=== PATIENT | female | born 1945 | race Caucasian/White ===

== ENCOUNTER 2023-11-05 16:05 | Inpatient (IN) | payer MEDICARE, OTHER, SELFPAY ==
[2023-11-05 11:17] VITALS: BMI 23.8
[2023-11-05 11:18] VITALS: BP 145/127
[2023-11-05 11:28] LABS: Glucose - Point of Care 99 mg/dl (70-99)
[2023-11-05 12:00] VITALS: BP 134/70
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
[2023-11-05 13:05] LABS: Hematocrit 28.6 % (37.0-47.0); Hemoglobin 9.5 g/dL (12.0-16.0); Mean Corp Hgb Conc. 33.2 g/dL (33.0-37.0); Mean Corpuscular Hgb 31.3 pg (27.0-31.0); Mean Corpuscular Volume 94.1 fL (81.0-99.0); Mean Platelet Volume 11.1 fL (7.4-10.4); Platelet Count 207 10^3/uL (130-400); Red Blood Cell Count 3.04 10^6/uL (4.20-5.40); Red Cell Dist. Width 13.4 % (11.5-14.5); White Blood Cell Count 8.9 10^3/uL (4.8-10.8)
[2023-11-05] MEDS: NSS 500 IV (13:05)
[2023-11-05 13:22] LABS: Lactic Acid 1.1 mmol/L (0.7-2.0)
[2023-11-05 13:27] LABS: ALT (SGPT) 30 U/L (0-35); AST (SGOT) 51 U/L (14-36); Albumin 3.6 g/dl (3.5-5.0); Alkaline Phosphatase 133 U/L (38-126); Blood Urea Nitrogen 25 mg/dl (7-17); Calcium 8.8 mg/dl (8.4-10.2); Carbon Dioxide 17 mmol/L (22-30); Chloride 107 mmol/L (98-107); Creatine Phosphokinase 302 U/L (30-135); Estimated Creatinine Clearance 23 ml/min; Glucose 85 mg/dl (70-99); Potassium 4.6 mmol/L (3.5-5.1); Sodium 134 mmol/L (135-145); Total Bilirubin 0.4 mg/dl (0.2-1.3); Total Protein 6.1 g/dl (6.3-8.2); eGFR 35.23
[2023-11-05 14:26] LABS: Urine Albumin 1+ (Neg - Trace); Urine Bilirubin Negative (Negative); Urine Character Clear (Clear); Urine Color Yellow; Urine Glucose Negative (Negative); Urine Ketone Negative (Negative); Urine Leukocyte Negative (Negative); Urine Nitrite Negative (Negative); Urine Occult Blood 1+ (Negative); Urine Specific Gravity 1.015 (<1.030); Urine Urobilinogen Negative (Neg - 1+)
--- NOTE | 2023-11-05 14:31 | PHANOTE ---
med rec jan(11/05/23)- patient states she stopped taking her prednisolone acetate 1% eye drops because she experienced negative symptoms after taking them. She is prescribed 1 drop both eyes twice a day.
[2023-11-05 14:39] LABS: Urine Squamous Cell 16-20 /LPF (Few)
[2023-11-05 14:41] LABS: Urine Bacteria Moderate (Negative)
[2023-11-05 14:42] LABS: Urine Red Blood Cell 0-2 /HPF (0-2)
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
--- NOTE | 2023-11-05 15:55 | CON.CAR ---
Addendum entered and electronically signed by Bennie Hoffmann MD 11/05/23 17:52:
I saw and examined the patient.
The EVENTS ASSISTANT's note was reviewed and I agree with the note.
Comment: 77 year old with cervical cancer, hypertension, type 2 diabetes, and peripheral neuropathy who presents for fall and weakness. She was cleaning her yard and closets all weekend said she felt fine doing this. But then she reports she was
nauseous all weekend long with the chills. Today she stood up and felt weak. Her legs gave out and she fell. She was on the floor for 5 hours. She denies ever having any chest pain or shortness of breath. She reports she really only is
concerned about her feet pain. On exam she has a regular rate and rhythm with a normal S1-S2 no murmur rubs or gallops were appreciated lungs were clear to auscultation. She is awake alert and oriented x 3. No lower extremity edema. On EKG she
has normal sinus rhythm with a left axis deviation, septal infarct pattern, nonspecific ST-T wave changes. When compared to the prior on 04/15/2023, nonspecific ST changes in V4 to V6 are now seen, these are very mild. Labs significant for
creatinine 1.5 troponin of 2.18 creatinine kinase of 302. We are asked to comment on her abnormal troponin. Source of her abnormal troponin is unclear. She certainly has risk factors for underlying coronary artery disease. It is possible that
the nausea was a coronary anginal equivalent. We discussed the indication for cardiac catheterization, and medications to thin her blood. She is not sure she is interested in either right now. She will contemplate and let me know. If troponin
continues to rise, would certainly try to at least initiate heparin and Plavix. Echocardiogram was completed and will see the source of this. She was on the ground for quite some time so may be rhabdomyolysis is playing a role. She is certainly
comfortable right now without any complaints at all. Would continue her beta-kirk for her history of hypertension. Given her diabetes and possible non-STEMI would initiate statin therapy when CK improves.
Will follow.
Original Note:
Consultation
Consultation Request
Date/Time Consultation Requested: 11/05/2023 15:30
Date/Time Consultation Performed: 11/05/2023 16:00
Requesting Provider: Dr. Burnett
Performing Provider: LI Orozco from Dr. Hoffmann
Reason for Consultation: Abnormal tt
Medical History
-
Chief Complaint: Fall
History of Present Illness:
Anabelle Terrell is a 77 year old with cervical cancer, hypertension, type 2 diabetes, and peripheral neuropathy who presented to the emergency department after a fall. She reports she got out of bed and her legs gave out. She denies a sensation of
the room spinning. She denies loss of consciousness. She was on the floor for approximately 5 hours. She reports her son would not help her up. She used her cane to get the phone to call 911. EMS reports hypoglycemia with a blood glucose of 26
and 32. These were appropriately treated. She endorses fatigue and chills along with intermittent nausea. COVID-19 was negative. Less than 1 week ago she was outside trimming her bushes and doing yard work. She had no symptoms of chest pain or
shortness of breath. Cardiology was consulted as she was found to have a troponin of greater than 2.
Past Medical History
Past Medical History: Cancer (Cervical), HTN, Hypercholesterolemia, NIDDM and Renal Failure (CKD)
Past Surgical History: , Orthopedic and Tonsilectomy
Social History
Tobacco: Non-Smoker
Alcohol: None
Living: With Family (Older son.)
Employment: Retired
Family History
Family History: Reviewed & Not Pertinent
Allergies / Home Medications
Allergy/AdvReac Type Severity Reaction Status Date / Time
grass pollen-sweet vernal, Allergy Unknown Verified 12/17/21 14:54
standardized
[Grass Poll-Sweet Vernal
Grass]
house dust Allergy Unknown Verified 03/10/22 09:17
mold Allergy Unknown Verified 03/10/22 09:17
pollen extracts Allergy Unknown Verified 03/10/22 09:17
�Medication �Instructions �Recorded �Confirmed �Type
gabapentin 300 mg capsule 600 mg PO ONCE PRN feet spasms 11/19/12 11/05/23 History
metformin 1,000 mg tablet 1,000 mg PO DAILY@1400 Diabetes 11/19/12 11/05/23 History
insulin glargine 100 unit/mL (3 40 unit SC HS 04/15/23 11/05/23 History
mL) subcutaneous pen (Basaglar
KwikPen U-100 Insulin)
metoprolol succinate 50 mg 50 mg PO DAILY@1400 04/15/23 11/05/23 History
tablet,extended release 24 hr
Review of Systems
-
History Source: Patient
All other systems: Negative unless noted
Constitutional: Fatigue and Chills
EENT: No Symptoms
Respiratory: No Symptoms
Cardiac: No Symptoms
Abdomen/GI: Nausea
: No Symptoms
Musculoskeletal: No Symptoms
Skin: No Symptoms
Neurological: No Symptoms
Endocrine: No Symptoms
Hematologic/Lymphatic: No Symptoms
Physical Exam
Vital Signs
Temp Pulse Resp BP Pulse Ox
98.1 F 86 29 134/70 97
11/05/23 11:18 11/05/23 15:00 11/05/23 15:00 11/05/23 12:00 11/05/23 13:15
Lab Results
11/05/23 12:50
11/05/23 12:50
Troponin I 2.180 ng/ml H* 11/05/23 12:50
Physical Exam
General: Well Developed, Well Nourished, No Apparent Distress and Comfortable
HEENT: Normocephalic and Moist Mucous Membranes
Respiratory: Clear and Non Labored Respirations
Cardiac: S1/S2 and Regular Rhythm; Negative Peripheral Edema
GI: Soft, Non Tender, Non Distended and Normal Bowel Sounds
Rectal: Deferred by Provider
Genito-urinary: No Costovertebral Tender
Musculoskeletal: No Clubbing, No Cyanosis and No Edema
Skin: Warm and Dry
Neuro: AO x 3
Hematologic/Lymphatic: No Lymphadenopathy
Psych: Calm
Impression / Plan
-
Fall, on floor for 6 hours, CK 302
Weakness with associated chills and nausea
-Covid 19 negative
-No leukocytosis
Abnormal troponin
-Troponin 2.180, trend
-No chest pain
-Trend EKG
-TTE
HTN, chronic, stable
CKD3b
Anemia of chronic disease
Type II diabetes, on insulin & oral agent, hypoglycemia earlier today, last Hgba1c 7.1%
Cervical cancer, follows with Dr. Hoyt
Data Reviewed
-
EKG: Report Reviewed by me (Sinus rhythm, prior septal infarct, anterior T wave changes)
CT Scan: Report Reviewed by me (Head: There are no acute intracranial abnormalities. There is moderate diffuse cortical atrophy with mild nonspecific white matter changes as described above.)
Labs: Labs Reviewed by me
Old Records: Reviewed (PCP notes)
[2023-11-05 16:19] LABS: COVID-19 Antigen Negative (Negative)
[2023-11-05 19:35] VITALS: BP 142/71
[2023-11-05] MEDS: TYLENOL 650 MG PO (19:58)
[2023-11-05 20:36] LABS: Glucose - Point of Care 115 mg/dl (70-99)
[2023-11-05] MEDS: NSS 1000 IV (20:54)
[2023-11-05] MEDS: LOW STRENGTH ASPIRIN 324 MG PO (20:54)
[2023-11-05] MEDS: LOVENOX 30 MG SC (20:59)
[2023-11-05] MEDS: NOVOLOG FLEXPEN-LOW RESISTANCE SC (21:27)
[2023-11-05 21:39] LABS: Glucose - Point of Care 116 mg/dl (70-99)
[2023-11-05 23:30] VITALS: BP 88/49
[2023-11-06] VITALS (7 sets, daily range): BP systolic 98–158; BP diastolic 53–89; PULSE 91; O2SAT 97
[2023-11-06 05:07] LABS: Glucose - Point of Care 48 mg/dl (70-99)
[2023-11-06 05:29] LABS: Glucose - Point of Care 52 mg/dl (70-99)
[2023-11-06 05:48] LABS: Glucose - Point of Care 93 mg/dl (70-99)
[2023-11-06] MEDS: NSS 1000 IV ×2 (06:29→21:49)
[2023-11-06 07:41] LABS: Glucose - Point of Care 103 mg/dl (70-99)
[2023-11-06 07:46] LABS: Hematocrit 26.8 % (37.0-47.0); Hemoglobin 9.3 g/dL (12.0-16.0); Mean Corp Hgb Conc. 34.7 g/dL (33.0-37.0); Mean Corpuscular Hgb 30.9 pg (27.0-31.0); Mean Platelet Volume 10.7 fL (7.4-10.4); Platelet Count 203 10^3/uL (130-400); Red Blood Cell Count 3.01 10^6/uL (4.20-5.40); Red Cell Dist. Width 13.3 % (11.5-14.5); White Blood Cell Count 6.4 10^3/uL (4.8-10.8)
[2023-11-06 08:24] LABS: ALT (SGPT) 30 U/L (0-35); AST (SGOT) 61 U/L (14-36); Alkaline Phosphatase 118 U/L (38-126); Blood Urea Nitrogen 26 mg/dl (7-17); Calcium 8.2 mg/dl (8.4-10.2); Carbon Dioxide 14 mmol/L (22-30); Chloride 108 mmol/L (98-107); Creatine Phosphokinase 452 U/L (30-135); Estimated Creatinine Clearance 26 ml/min; Glucose 94 mg/dl (70-99); Potassium 4.4 mmol/L (3.5-5.1); Sodium 133 mmol/L (135-145); Total Bilirubin 0.3 mg/dl (0.2-1.3); Total Protein 5.3 g/dl (6.3-8.2); eGFR 41.83
[2023-11-06 08:41] LABS: Glucose - Point of Care 71 mg/dl (70-99)
--- NOTE | 2023-11-06 08:42 | PTCARENOTE ---
~20:36 18:34 Troponin level 5.800 lab results. Pt denied chest pain, SOB, difficulty breathing, lightheadedness, and dizziness. Notified Physician Tahira. Per physician, this RN asked pt if they reconsidered blood thinners and cath. Pt refused
blood thinners and cath. 'My friend is a health and safety director and said to only go on blood thinners if it is absolutely necessary.' Notified Physician Tahira. This RN educated pt again. Pt agreed to 'low dose blood thinner.' Notified Physician
Tahira. Per physician, continue on aspirin. Plan of care ongoing.
~01:20 Notified Physician Tahira of 00:12 Troponin level 7.820 lab results. Pt asleep at the time of results. Pt arousable. AAXO3. Pt denied chest pain, SOB, difficulty breathing, lightheadedness, and dizziness. RN that bernard the lab reported 'pt
denied chest pain at time of lab draw.' Notified Physician Tahira. Plan of care ongoing.
[2023-11-06 08:43] LABS: TSH 1.23 uIU/ml (0.47-4.68)
[2023-11-06] MEDS: NOVOLOG FLEXPEN-LOW RESISTANCE SC ×3 (08:56→17:33)
[2023-11-06 09:11] LABS: Glycohemoglobin (HgbA1c) 7.1 % (4.0-5.6)
[2023-11-06 09:29] LABS: Glucose - Point of Care 85 mg/dl (70-99)
--- NOTE | 2023-11-06 09:56 | W.PN.CD ---
Today's Communication / Plan
-
Check f/u EKG
Impression / Plan
-
Systemic illness resulting in a fall and rising CPK, generalized weakness. Low bicarbonate with single blood culture positive
- Defer to medicine for further evaluation and treatment
Abnormal troponin. Peak troponin 7.8
- Echo with no wall motion changes
- Will check a followup EKG
- No CP
- Suspect a non-ischemic myocardial injury precipitated by her medical illness, cannot rule out a type II IN but I do not favor cardiac MRI or nuclear stress at this time
- Electively a stress test can be considered as an outpatinet
Mixed mitral valve disease
- Dense MAC
- Mod calcific MS
- Mod MR
HTN, chronic, stable
CKD3b
Anemia of chronic disease
Type II diabetes, on insulin & oral agent, hypoglycemia earlier today, last Hgba1c 7.1%
Cervical cancer, follows with Dr. Hoyt
Subjective:
No CP or dyspnae
Physical Exam
Vital Signs/Labs
Vital Signs
Temp Pulse Resp BP Pulse Ox
97.9 F 85 21 98/66 99
11/06/23 07:58 11/06/23 07:58 11/06/23 07:58 11/06/23 07:58 11/06/23 07:58
11/05/23 11/06/23 11/07/23
06:59 06:59 06:59
Actual Weight 57 kg
11/06/23 07:35
11/06/23 07:35
TSH 1.23 uIU/ml (0.47-4.68) 11/06/23 07:35
LAB Results
11/05/23 11/05/23 11/06/23
12:50 18:34 00:12
Troponin I 2.180 H* 5.800 H* D 7.820 H* D
11/06/23
07:35
Troponin I 5.700 H* D
Physical Exam
Constitutional: No acute distress
EENT: Anicteric
Cardiovascular: Rhythm & rate is regular and Pedal edema is absent
Respiratory: Respiratory effort normal and Lungs clear to auscul.
GI: Soft and Distention absent
Data Reviewed
-
Date of Service: November 06, 2023
[2023-11-06 12:18] LABS: Glucose - Point of Care 116 mg/dl (70-99)
[2023-11-06] MEDS: TOPROL XL 50 MG PO (13:12)
[2023-11-06] MEDS: FLUSH (NSS) 1 FLUSH IV (13:13)
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
[2023-11-06 15:45] LABS: Glucose - Point of Care 137 mg/dl (70-99)
--- NOTE | 2023-11-06 16:16 | W.PN.HOSP.TC ---
Today's Communication/Plan
-
see plan above
Assessment / Plan
Assessment / Plan
Weakness with fall without loss of consciousness-suspect sec to hypoglycemia. She also has elevated troponins which is asymptomatic. Clinically doubt infection-afebrile and white count normal. No focal infective symptoms.
Severe hypoglycemia-patient known to have diabetes mellitus on insulin. Hemoglobin A1c 7.1 . Cotinue to hold metformin and insulin for now.With issues with recurrent hypoglycemia not a candidate for Insulin treatments. Will exlpore GLP-1 and
SGLT2 medications along with her metformin.
Abnormal troponins -suspect NSTEMI -EKG read as septal Q waves which noted before. No acute ST-T changes. She is asymptomatic without chest pain or shortness of breath. ECHO with normal LV function. Ischemia eval per cards.
Mild rhabodmyolysis- no need for further IV fluids
Metabolic acidosis -sec to CKD .No lactic acidosis. Start on low dose Sodium bicarbonate
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
Neuropathy-continue with gabapentin
Full code
DW Cardiology today
Anticipated Discharge: 24 - 48 hours
Subjective/Interval History
-
Date of Service: November 06, 2023
patient denies any chest pain. Denies any shortness of breath.
No nausea vomiting. Tolerating diet.
Objective Data
-
Labs:
Laboratory Results
11/06/23
07:35
WBC 6.4
Hgb 9.3 L
Hct 26.8 L
Plt Count 203
Sodium 133 L
Potassium 4.4
Chloride 108 H
Carbon Dioxide 14 L*
BUN 26 H
Creatinine 1.3 H
Glucose 94
Calcium 8.2 L
Total Bilirubin 0.3
AST 61 H
ALT 30
Alkaline Phosphatase 118
Vital Signs:
Vital Signs
Temp Pulse Resp BP Pulse Ox
97.3 F 93 18 133/89 98
11/06/23 16:00 11/06/23 16:00 11/06/23 16:00 11/06/23 16:00 11/06/23 16:00
Review of Systems
-
Constitutional: Denies Fever
EENT: Denies Sore Throat
Respiratory: Denies Cough or Trouble Breathing
Cardiac: Denies Chest Pain
Abdomen/GI: Denies Abdominal Pain, Nausea or Vomiting
Neuro: Denies Dizzy
Physical Exam
-
General: No Apparent Distress
HEENT: Moist Mucous Membranes
Respiratory: Clear to Auscultation
Cardiac: Regular Rhythm and S1/S2
GI: Soft
Neuro: AO x 3
Data Reviewed
-
Labs: Labs Reviewed by me
[2023-11-06] MEDS: LOVENOX 30 MG SC (17:33)
[2023-11-06] MEDS: SODIUM BICARBONATE 325 MG PO ×2 (17:36→21:46)
[2023-11-06 21:10] LABS: Glucose - Point of Care 102 mg/dl (70-99)
[2023-11-06] MEDS: TYLENOL 650 MG PO (23:06)
[2023-11-07] VITALS (7 sets, daily range): BP systolic 103–171; BP diastolic 55–93; PULSE 100; O2SAT 94
[2023-11-07 02:39] LABS: Glucose - Point of Care 69 mg/dl (70-99)
[2023-11-07 02:58] LABS: Glucose - Point of Care 81 mg/dl (70-99)
[2023-11-07 05:07] LABS: Glucose - Point of Care 76 mg/dl (70-99)
[2023-11-07 07:18] LABS: Glucose - Point of Care 64 mg/dl (70-99)
[2023-11-07 07:50] LABS: Glucose - Point of Care 71 mg/dl (70-99)
[2023-11-07] MEDS: NOVOLOG FLEXPEN-LOW RESISTANCE SC ×2 (08:01→12:46)
[2023-11-07] MEDS: SODIUM BICARBONATE 325 MG PO ×3 (08:36→21:10)
--- NOTE | 2023-11-07 08:37 | PN.CDI ---
CDI
- -
CDI:
Physician Documentation Request
Admit Date: 11/05/23 16:05
Dear Doctor Lex,
Clinical Indicators:
Patient admitted with weakness and fall.
11/04 Cardiology consult, 'Her legs gave out and she fell. She was on the floor for 5 hours.'
11/05 PN, 'Mild rhabodmyolysis'
CPK trend:
11/05/23 11/06/23
12:50 07:35
Creatine Kinase 302 H 452 H D
Please clarify the type of rhabdomyolysis:
Non traumatic rhabdomyolysis
Traumatic rhabdomyolysis
Other, please specify
Use of terms such as suspected, likely, concern for, or probable (associated with a specific diagnosis that is being evaluated, monitored, or treated as if it exists) are acceptable and can be coded in the inpatient setting, when documented at the
time of discharge.
Thank you,
SAMSON Deng RN
CDI Specialist
available via tiger text
Please use your independent medical judgment in providing your response.
--- NOTE | 2023-11-07 09:14 | PN.DE.MGMTRT ---
Insulin Management
- -
11/07/2023 Diabetes Management Consult
Patient admitted 11/04 s/p fall, possibly related to hypoglycemia. PMH hyperparathyroid, nephropathy, CKD 3b, HTN, type 2 diabetes, HCL, cervical CA. A1C on admission 7.1, cr 1.3, eGFR 41.83. Prior to admission was taking Basaglar 40 units @ HS
with metformin 1000 BID.
Glucose on admission 99, 11/05 at 5AM 48, treated 52 treated 93. Glucose pre meal 116, 137 and 102 @ HS.
11/06 @ 2:38AM 69, treated 81, @ 7:17 64.
Patient has received no hypoglycemic medications. Will continue to HOLD both metformin and basaglar.
Patient is awake alert and oriented able to discuss diabetes management. States at home she only eats soup for breakfast and soup for lunch and dinner. She changes the dose of Basaglar anywhere from 20 units to 40 units.
At discharge would recommend metformin 1000 mg BID no Basaglar.
Diabetes History
- -
Type of Diabetes: 2
Pre-Admission Diabetes Regimen
Lab Results
Hemoglobin A1c 7.1 % (4.0-5.6) H 11/06/23 07:35
Insulin Pump Settings
IP Diabetes Regimen
11/06/23 11/06/23 11/06/23
09:27 12:17 15:34
POC Glucose 85 116 H 137 H
11/06/23 11/07/23 11/07/23
21:09 02:38 02:56
POC Glucose 102 H 69 L 81
11/07/23 11/07/23 11/07/23
05:05 07:17 07:46
POC Glucose 76 64 L 71
Meal type: Lunch
Meal type: Breakfast
Amount consumed: 95%
Amount consumed: 85%
Patient Education
--- NOTE | 2023-11-07 10:13 | W.PN.CD ---
Today's Communication / Plan
-
Cardiology will sign off.
We will arrange a f/u in 1-2 months to follow MV disease and to consider stress testing
Impression / Plan
-
Systemic illness resulting in a fall and rising CPK, generalized weakness. Low bicarbonate with single blood culture positive
- Defer to medicine for further evaluation and treatment
- Medicine leaning towards hypoglycemia as culprit
Abnormal troponin. Peak troponin 7.8
- Echo with no wall motion changes
- Will check a followup EKG => no changes. Septal infarct pattern IS VERY OLD.
- No CP
- Suspect a non-ischemic myocardial injury precipitated by her medical illness, cannot rule out a type II GA but I do not favor cardiac MRI or nuclear stress at this time
- Electively a stress test can be considered as an outpatient
Mixed mitral valve disease
- Dense MAC
- Mod calcific MS
- Mod MR
HTN, chronic, stable
CKD3b
Anemia of chronic disease
Type II diabetes, on insulin & oral agent, hypoglycemia earlier today, last Hgba1c 7.1%
Cervical cancer, follows with Dr. Hoyt
Subjective:
No CP or dyspnea
Physical Exam
Vital Signs/Labs
Vital Signs
Temp Pulse Resp BP Pulse Ox
98.2 F 81 18 148/76 96
11/07/23 08:00 11/07/23 08:00 11/07/23 08:00 11/07/23 08:00 11/07/23 08:00
11/06/23 11/07/23 11/08/23
06:59 06:59 06:59
Actual Weight 57 kg
11/06/23 07:35
11/06/23 07:35
TSH 1.23 uIU/ml (0.47-4.68) 11/06/23 07:35
LAB Results
11/05/23 11/05/23 11/06/23
12:50 18:34 00:12
Troponin I 2.180 H* 5.800 H* D 7.820 H* D
11/06/23
07:35
Troponin I 5.700 H* D
Physical Exam
Constitutional: No acute distress
EENT: Anicteric
Cardiovascular: Rhythm & rate is regular and Pedal edema is absent
Respiratory: Respiratory effort normal and Lungs clear to auscul.
GI: Soft and Distention absent
Neuro/Psych: AO x 3
Data Reviewed
-
Date of Service: November 07, 2023
--- NOTE | 2023-11-07 11:09 | W.PN.HOSP.TC ---
Today's Communication/Plan
-
DC
Assessment / Plan
Assessment / Plan
Weakness with fall without loss of consciousness-suspect sec to hypoglycemia. She also has elevated troponins which is asymptomatic. Clinically doubt infection-afebrile and white count normal. No focal infective symptoms.
Severe hypoglycemia-patient known to have diabetes mellitus on insulin. Hemoglobin A1c 7.1 . Cotinue to hold insulin for now.With issues with recurrent hypoglycemia not a candidate for Insulin treatments. Will exlpore GLP-1 and SGLT2 medications
along with her metformin . With her current blood sugar levels ,Metformin alone should be suffice.
Abnormal troponins -suspect NSTEMI -EKG read as septal Q waves which noted before. No acute ST-T changes. She is asymptomatic without chest pain or shortness of breath. ECHO with normal LV function. Ischemia eval per cards -planned for OP.
Mild rhabodmyolysis- no need for further IV fluids
Metabolic acidosis -Normal AG -sec to CKD .No lactic acidosis. Started on low dose Sodium bicarbonate
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
Neuropathy-continue with gabapentin
Full code
Medically stable for DC today
DC home after seen by PT and cleared for HH.
Discussed with cards about their OP plan
Total time of dc 32 min
Anticipated Discharge: Today
Subjective/Interval History
-
Date of Service: November 07, 2023
Voicing no specific complaints today. Keen to go home today.
Denies any chest pain, shortness of breath or palpitations.
No nausea or vomiting.
Objective Data
-
Vital Signs:
Vital Signs
Temp Pulse Resp BP Pulse Ox
98.2 F 81 18 148/76 96
11/07/23 08:00 11/07/23 08:00 11/07/23 08:00 11/07/23 08:00 11/07/23 08:00
I&O
06/11/07/23 11/08/23
06:59 06:59 06:59
Intake Total 2159
Balance 2159
Review of Systems
-
Constitutional: Denies Fever
EENT: Denies Sore Throat
Respiratory: Denies Cough
Abdomen/GI: Denies Abdominal Pain
Neuro: Denies Dizzy
Physical Exam
-
General: No Apparent Distress
HEENT: Moist Mucous Membranes
Respiratory: Non Labored Respirations and Accessory Resp Muscle Use
Cardiac: Regular Rhythm and S1/S2
GI: Soft and Nontender
Neuro: AO x 3
Psych: Calm; Negative Confused
Data Reviewed
-
Labs: Labs Reviewed by me
--- NOTE | 2023-11-07 11:16 | W.DS.TRANS ---
DC Summary - Lav Crewman
-
Discharge Instructions:
Discharge Diagnosis/Procedures Severe hyperglycemia. Abnormal troponins
Diet Low Cholesterol,2 Gram Sodium
Activity As tolerated
Driving Restrictions Not until seen by your Dr
Other Services PT
Instructions:
Stand-Alone Forms:
Changes to Home Medications: Yes
Discharge Medications:
DC Medications w/original date entered in [employer]
gabapentin 300 mg capsule 600 mg PO ONCE PRN feet spasms 11/19/12
metformin 1,000 mg tablet 1,000 mg PO DAILY@1400 Diabetes 11/19/12
metoprolol succinate 50 mg tablet,extended release 24 hr 50 mg PO DAILY@1400 04/15/23
aspirin 81 mg tablet,delayed release (Enteric Coated Aspirin) 81 mg PO DAILY #30 tabs 11/07/23
sodium bicarbonate 650 mg tablet 325 mg (1/2 x 650 mg) PO TID #90 tabs 11/07/23
Home Medication Changes
medication-aspirin and sodium bicarbonate
Discontinue medication-glargine insulin
Pending Results: No
[2023-11-07] MEDS: NSS IV (11:51)
[2023-11-07 11:57] LABS: Glucose - Point of Care 144 mg/dl (70-99)
--- NOTE | 2023-11-07 12:09 | CM ---
Addendum entered by Genoveva Velazquez 11/07/23 14:43:
Patient now requesting to go to [facility], referral sent in [facility] for short term rehab.
Original Note:
CM placed call to [facility], provided update that patient is for discharge today. [facility] worker, Derrick, will meet with patient at Hospital around 12:30 p.m., patient updated. CM updated [facility] on patient discharge today. Patient reports she is eager to go
home, reports she does not feel safe but does not feel unsafe at home. Patient reports she is concerned about her cat at home and the home being a mess. Patient reports she cannot evict her son from her home as he would have nowhere to go. CM
offered support to patient, discussed [facility] will be here shortly to meet with patient. Patient reports her son Laith will provide transportation home after work, around 3:00 p.m. IMM reviewed, patient reports she verbally understands, cannot sign as
she does not have her glasses with her. CM will continue to follow for all discharge planning needs.
Plan; home with [facility], [facility] to come to Hospital to see patient.
--- NOTE | 2023-11-07 12:58 | VNURNOTE ---
Home Health Liaison met with patient at 1130 to discuss [facility] nurse/therapy, visits, schedule and homebound status. Patient is agreeable and understands that visits at home will be 2-3 x per week to assess and teach medical management.
[facility] brochure provided with contact information. Patient is aware that [facility] will contact her for start of care in 1-2 days after discharge from .
[facility] referral completed in [facility].
[2023-11-07] MEDS: TOPROL XL 50 MG PO (14:43)
[2023-11-07 15:43] LABS: Glucose - Point of Care 309 mg/dl (70-99)
--- NOTE | 2023-11-07 16:06 | PTOTSP ---
Dysphagia Evaluation
Oral and pharyngeal stages of swallowing suspected to be WFL. No signs of aspiration observed. Low suspicion for silent aspiration at this time given lack of known etiology in PMH to explain this. Patient denied history of dysphagia/aspiration or
repeated pneumonias.
Recommend:
1. Regular, Thin Liquids
2. Medications as best tolerated
3. Oral care 3x daily
4. No further dysphagia therapy warranted. Please reconsult as appropriate.
[2023-11-07] MEDS: UNASYN IV (16:32)
[2023-11-07] MEDS: LOVENOX 30 MG SC (16:34)
[2023-11-07] MEDS: NOVOLOG FLEXPEN-LOW RESISTANCE 4 UNITS SC (18:24)
[2023-11-07] MEDS: GLUCOPHAGE 500 MG PO (18:28)
[2023-11-07] MEDS: TYLENOL 650 MG PO (19:42)
[2023-11-07 21:08] LABS: Glucose - Point of Care 141 mg/dl (70-99)
[2023-11-07] MEDS: LANTUS 0.100000000000000006 UNITS SC (21:10)
[2023-11-08 02:59] LABS: Glucose - Point of Care 92 mg/dl (70-99)
[2023-11-08 03:20] VITALS: BP 131/65
[2023-11-08] MEDS: UNASYN IV ×2 (03:58→16:13)
[2023-11-08 05:52] VITALS: BMI 24.2
[2023-11-08 07:00] VITALS: BP 116/61
[2023-11-08 07:22] LABS: Glucose - Point of Care 107 mg/dl (70-99)
--- NOTE | 2023-11-08 07:41 | PN.DE.MGMTRT ---
Insulin Management
- -
11/08/2023 Diabetes Management Consult Follow up
Patient admitted 11/04 s/p fall, possibly related to hypoglycemia. PMH hyperparathyroid, nephropathy, CKD 3b, HTN, type 2 diabetes, HCL, cervical CA. A1C on admission 7.1, cr 1.3, eGFR 41.83. Prior to admission was taking Basaglar 40 units @ HS
with metformin 1000 BID.
Patient is awake alert and oriented able to discuss diabetes management. States at home she only eats soup for breakfast and soup for lunch and dinner. She changes the dose of Basaglar anywhere from 20 units to 40 units.
Glucose on admission 99, 11/05 at 5AM 48, treated 52 treated 93. Glucose pre meal 116, 137 and 102 @ HS.
11/06 @ 2:38AM 69, treated 81, @ 7:17 64. Pre dinner glucose 309. Nurse notified me, 4 units novolog administered as well as metformin 500 mg and 10 units lantus administered @ HS.
3AM glucose 92 fasting this AM 107. Will stop 10 units lantus and continue metformin 500 mg BID add Januvia 100 mg daily first dose this AM.
At discharge would recommend metformin 500 mg BID no Basaglar with Januvia 100 mg daily.
Diabetes History
- -
Type of Diabetes: 2
Pre-Admission Diabetes Regimen
Lab Results
Hemoglobin A1c 7.1 % (4.0-5.6) H 11/06/23 07:35
Insulin Pump Settings
IP Diabetes Regimen
11/07/23 11/07/23 11/07/23
07:46 11:45 15:41
POC Glucose 71 144 H 309 H
11/07/23 11/08/23 11/08/23
21:06 02:58 07:20
POC Glucose 141 H 92 107 H
Meal type: Breakfast
Meal type: Lunch
Amount consumed: 0
Amount consumed: 30%
Patient Education
[2023-11-08] MEDS: NOVOLOG FLEXPEN-LOW RESISTANCE SC ×3 (09:07→16:14)
[2023-11-08] MEDS: SODIUM BICARBONATE 325 MG PO ×2 (09:07→16:12)
[2023-11-08] MEDS: GLUCOPHAGE 500 MG PO ×2 (09:10→16:12)
[2023-11-08] MEDS: JANUVIA 100 MG PO (09:11)
[2023-11-08 11:00] VITALS: BP 97/67
--- NOTE | 2023-11-08 11:18 | W.PN.HOSP.TC ---
Addendum entered and electronically signed by Jermaine Burnett MD 11/09/23 15:45:
non traumatic rhabdomyolysis
Addendum entered and electronically signed by Jermaine Burnett MD 11/09/23 15:41:
Sepsis sec to aspiration pneumonia/pneumonitis present on adx
Original Note:
Today's Communication/Plan
-
DC
Assessment / Plan
Assessment / Plan
Weakness with fall without loss of consciousness-suspect sec to hypoglycemia. She also has elevated troponins which is asymptomatic.
Severe hypoglycemia-patient known to have diabetes mellitus on insulin. Hemoglobin A1c 7.1 . Cotinue to hold insulin for now.With issues with recurrent hypoglycemia not a candidate for Insulin treatments. Will exlpore GLP-1 and SGLT2 medications
along with her metformin- they are pricey at 420$/m . cw Metformin . Added Karl .
Abnormal troponins -suspect NSTEMI -EKG read as septal Q waves which noted before. No acute ST-T changes. She is asymptomatic without chest pain or shortness of breath. ECHO with normal LV function. Ischemia eval per cards -planned for OP.
Febrile illness with a left perihilar opacity concerning for aspiration pneumonitis pneumonia. She was on the floor for a while. Speech eval on admission shows no evidence of aspiration. Finish 5 days course of antibiotic for possible
aspiration pneumonia/pneumonitis. Afebrile today and no active respiratory symptoms.
Mild rhabodmyolysis- no need for further IV fluids
Metabolic acidosis -Normal AG -sec to CKD .No lactic acidosis. Started on low dose Sodium bicarbonate
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
Neuropathy-continue with gabapentin
Full code
Medically stable for DC .
Pt wishes to go to rehab.
CM working on it.
Total time of DC 32 min
Anticipated Discharge: Today
Subjective/Interval History
-
Date of Service: November 08, 2023
feels okay. She was surprised she had a fever and pneumoina on CXR. She denies much of cough or shortness of breath. No prior lung issues. She was on the floor for a while before EMS came to pick her up.
No nausea or vomiting. Tolerating diet.
Objective Data
-
Vital Signs:
Vital Signs
Temp Pulse Resp BP Pulse Ox
99.8 F 88 20 116/61 92
11/08/23 07:00 11/08/23 07:00 11/08/23 07:00 11/08/23 07:00 11/08/23 07:00
I&O
11/07/23 11/08/23 11/09/23
06:59 06:59 06:59
Intake Total 2160 / 2160 940 / 940
Balance 2160 / 2160 940 / 940
Review of Systems
-
Respiratory: Denies Trouble Breathing
Cardiac: Denies Chest Pain
Neuro: Denies Dizzy
Physical Exam
-
General: No Apparent Distress
HEENT: Moist Mucous Membranes
Respiratory: Clear to Auscultation
Cardiac: Regular Rhythm and S1/S2
GI: Soft
Neuro: AO x 3
Psych: Calm
Data Reviewed
-
Diagnostic Radiology: Report Reviewed by me (cxr)
--- NOTE | 2023-11-08 11:25 | W.DS.TRANS ---
DC Summary - [employer]
-
Discharge Instructions:
Discharge Diagnosis/Procedures Severe hyperglycemia. Abnormal troponins. Left
perihilar aspiration pneumonia/pneumonitis
Diet Low Cholesterol,2 Gram Sodium
Activity As tolerated
Driving Restrictions Not until seen by your Dr
Other Services PT,OT
Instructions:
Stand-Alone Forms:
Changes to Home Medications: Yes
Discharge Medications:
DC Medications w/original date entered in [email or web address]
gabapentin 300 mg capsule 600 mg PO ONCE PRN feet spasms 11/19/12
metoprolol succinate 50 mg tablet,extended release 24 hr 50 mg PO DAILY@1400 04/15/23
aspirin 81 mg tablet,delayed release (Enteric Coated Aspirin) 81 mg PO DAILY #30 tabs 11/07/23
sodium bicarbonate 650 mg tablet 325 mg (1/2 x 650 mg) PO TID #90 tabs 11/07/23
amoxicillin 875 mg-potassium clavulanate 125 mg tablet 1 tab PO BID #8 tabs 11/08/23
metformin 500 mg tablet 500 mg PO BID AT 0800,1700 #1 tab 11/08/23
sitagliptin phosphate 100 mg tablet (Januvia) 100 mg PO DAILY #1 tab 11/08/23
Home Medication Changes
medication-Januvia, sodium bicarbonate
Schedule medication-Lantus
Pending Results: No
[2023-11-08 11:46] LABS: Glucose - Point of Care 112 mg/dl (70-99)
[2023-11-08 15:00] VITALS: BP 127/76
--- NOTE | 2023-11-08 15:14 | CM ---
Addendum entered by Genoveva Velazquez 11/08/23 16:19:
CM sent message with number to call for payment to both patients son and daughter in law.
Addendum entered by Genoveva Velazquez 11/08/23 16:09:
Patient agreeable to go to [facility], can accept for rehab today. Patients family aware CM will call them to provide number fo [facility] payment once time is scheduled.
CM placed call to patients son Laith and daughter in law Mini, to provide number to call for [facility] cost ([phone]), left message to Xi with number to call for [facility]. 5:00 p.m. [facility] transport scheduled. IMM reviewed with
patient, signed, placed in chart.
[facility]
Report: [phone]

Transport: 5pm [facility]
Original Note:
CM met with patient, son, and daughter in law bedside, discussed [facility] unable to accept patient. Patient undecided on where she would like to go, unsure if she wants to go to SNF or go home. Family requesting referrals to [facility] for
[facility], referrals sent in [facility]. CM will continue to follow for all discharge planning needs.
Plan; awaiting response from SNF if they can offer patient bed.
[2023-11-08] MEDS: TOPROL XL 50 MG PO (15:23)
--- NOTE | 2023-11-08 15:38 | PN.CDI ---
CDI
- -
CDI:
Physician Documentation Request
Admit Date: 11/05/23 16:05
Dear Doctor Lex,
Clinical Indicators:
Patient admitted with weakness and fall.
11/07 PN, ' Febrile illness with a left perihilar opacity concerning for aspiration pneumonitis pneumonia. She was on the floor for a while...Finish 5 days course of antibiotic for possible aspiration pneumonia/pneumonitis'
Temp on admission:
11/05/23
19:35
Temp 102.5 F H
HR/RR trend on admission:
11/05/23
11:18 11/05/23
11:30 11/05/23
12:30
Pulse 96 92 92
Resp Rate 25 29 18
11/05/23
13:30
Pulse 94
Resp Rate 22
Please clarify which of the following most accurately describes the status of the patient's infection:
Sepsis, POA
- Systemic manifestations of infection, with 2 or more SIRS criteria which include:
- Fever >100.4 degrees F or hypothermia < 96.8 degrees F
- Leukocytosis - WBC > 12,000 or leukopenia - WBC < 4,000 or > 10% bands
- Tachycardia > 90 beats per minute
- Tachypnea - RR > 20 breaths per minute or PaCO2 , 32mmHg
Aspiration pneumonitis pneumonia Only, Without Systemic Illness
- indicate the site/source, such as UTI, pneumonia etc.
Other, please specify
Use of terms such as suspected, likely, concern for, or probable (associated with a specific diagnosis that is being evaluated, monitored, or treated as if it exists) are acceptable and can be coded in the inpatient setting, when documented at the
time of discharge.
Thank you,
Nicole Higuera RN
CDI Specialist
available via tiger text
Please use your independent medical judgment in providing your response.
--- NOTE | 2023-11-08 15:43 | PN.CDI ---
CDI
- -
CDI:
Physician Documentation Request
Admit Date: 11/05/23 16:05
Dear Doctor Lex,
Clinical Indicators:
Patient admitted with weakness and fall.
11/04 Echo Report: Normal biventricular size and systolic function without regional wall motion abnormality.
11/06 Cardiology PN, ' Will check a followup EKG => no changes. Septal infarct pattern IS VERY OLD....Suspect a non-ischemic myocardial injury precipitated by her medical illness, cannot rule out a type II RI'
11/07 PN, 'Abnormal troponins -suspect NSTEMI -EKG read as septal Q waves which noted before. No acute ST-T change'
Troponin trend:
Laboratory Tests
11/05/23 11/05/23 11/06/23
12:50 18:34 00:12
Troponin I 2.180 H* 5.800 H* D 7.820 H* D
11/06/23
07:35
Troponin I 5.700 H* D
Due to potentially conflicting documentation, please clarify the likely etiology of the troponin elevation:
Non ischemic myocardial injury
N STEMI (documentation complete)
Type II RI
Other
Unable to determine
Use of terms such as suspected, likely, concern for, or probable (associated with a specific diagnosis that is being evaluated, monitored, or treated as if it exists) are acceptable and can be coded in the inpatient setting, when documented at the
time of discharge.
Thank you,
SAMSON Deng RN
CDI Specialist
available via tiger text
Please use your independent medical judgment in providing your response.
[2023-11-08 16:13] LABS: Glucose - Point of Care 119 mg/dl (70-99)
== END 2023-11-08 17:14 | DRG 871 ==
LOC: 4 WEST ACU 16:05
PROVIDERS: Nurse Practitioner Gerontology; ADMITTING PHYSICIAN Internal Medicine; CONSULT PHYSICIAN Internal Medicine Cardiovascular Disease; EMERGENCY PHYSICIAN Emergency Medicine; FAMILY PHYSICIAN Family Medicine
DX: A41.9 Sepsis, unspecified organism (principal); I21.4 Non-ST elevation (NSTEMI) myocardial infarction; J69.0 Pneumonitis due to inhalation of food and vomit; E87.20 Acidosis, unspecified; M62.82 Rhabdomyolysis; E11.649 Type 2 diabetes mellitus with hypoglycemia without coma; I12.9 Hypertensive chronic kidney disease with stage 1 through stage 4 chronic kidney disease, or unspecified chronic kidney disease; N18.32 Chronic kidney disease, stage 3b; Z11.52 Encounter for screening for COVID-19; D63.8 Anemia in other chronic diseases classified elsewhere
CPT/HCPCS: 70450; 71046; 80053; 81003; 81015; 82550; 82962; 83036; 83605; 84443; 84484; 85027; 87040; 87086; 87150; 87205; 87811; 92610; 93005; 93306; 97116; 97162; 99285

== ENCOUNTER 2024-01-28 09:46 | Outpatient (RCR) | payer MEDICARE, OTHER, SELFPAY ==
[2024-01-28 10:04] VITALS: BP 144/72
[2024-01-28] MEDS: INJECTAFER 265 MG IV (10:39)
== END 2024-02-11 23:59 | disposition home or self-care (01) ==
LOC: OID 09:46
PROVIDERS: ATTENDING PHYSICIAN Physician Assistant; FAMILY PHYSICIAN Family Medicine
DX: D50.0 Iron deficiency anemia secondary to blood loss (chronic) (principal); N18.32 Chronic kidney disease, stage 3b
CPT/HCPCS: 96365; J1439

== ENCOUNTER 2024-02-01 18:00 | Inpatient (IN) | payer MEDICARE, OTHER, SELFPAY ==
[2024-02-01] VITALS (9 sets, daily range): BP systolic 128–163; BP diastolic 65–123; BMI 21.9; BMI 24.1
--- NOTE | 2024-02-01 13:03 | EDRN ---
the pt was agreeable to laying in stretcher, the pt is resting in stretcher in the lowest position, side rails up x2, call bess within reach, HOB elevated, no s/s of distress, no c/o chest pain, no c/o SOB, PIV placed and labs drawn and sent, will
continue to monitor the pt closely
[2024-02-01 13:06] LABS: % Eosinophils 3.1 % (0-6); % Immature Granulocytes 0.5 % (0-0.5); % Lymphocytes 9.7 % (20.5-51.1); % Monocytes 7.2 % (1.7-9.3); % Neutrophils 78.5 % (42.2-75.2); Absolute Basophils 0.1 10^3/uL (0-0.2); Absolute Eosinophils 0.2 10^3/uL (0-0.7); Absolute Lymphocytes 0.6 10^3/uL (1.2-3.4); Absolute Monocytes 0.4 10^3/uL (0.1-0.6); Absolute Neutrophils 4.6 10^3/uL (1.4-6.5); Hemoglobin 8.2 g/dL (12.0-16.0); Mean Corp Hgb Conc. 32.8 g/dL (33.0-37.0); Mean Corpuscular Hgb 30.5 pg (27.0-31.0); Mean Corpuscular Volume 92.9 fL (81.0-99.0); Mean Platelet Volume 10.9 fL (7.4-10.4); Nucleated Red Blood Cells % 0 %; Platelet Count 364 10^3/uL (130-400); Red Blood Cell Count 2.69 10^6/uL (4.20-5.40); Red Cell Dist. Width 13.7 % (11.5-14.5); White Blood Cell Count 5.9 10^3/uL (4.8-10.8)
[2024-02-01 13:21] LABS: ALT (SGPT) 21 U/L (0-35); AST (SGOT) 28 U/L (14-36); Albumin 3.8 g/dl (3.5-5.0); Alkaline Phosphatase 172 U/L (38-126); Blood Urea Nitrogen 22 mg/dl (7-17); Calcium 9.4 mg/dl (8.4-10.2); Carbon Dioxide 15 mmol/L (22-30); Chloride 110 mmol/L (98-107); Estimated Creatinine Clearance 34 ml/min; Glucose 70 mg/dl (70-99); Sodium 141 mmol/L (135-145); Total Bilirubin 0.3 mg/dl (0.2-1.3); Total Protein 6.5 g/dl (6.3-8.2)
[2024-02-01 13:29] LABS: NT-proBNP 12000 pg/ml
--- NOTE | 2024-02-01 14:41 | EDRN ---
the pts son approached this RN at the nurses station and stated, 'My mother is hungry and we have been here for hours and we still don't know what's going on, is the doctor going to update us? and i want her to have food', this RN notified the
provider Dr. Phillips who will come to the pts bedside, this RN confirmed with the provider that the pt could have something to eat, this RN provided the pt with an ER lunch box, the pt is sitting on the side of the bed eating with no issues, will
continue to monitor the pt closely
[2024-02-01 15:37] LABS: Troponin I < 0.012 ng/ml
--- NOTE | 2024-02-01 15:39 | ED.GENMED ---
History of Present Illness
General
Chief Complaint: Breathing Problem
Source: patient and family
Exam Limitations: none
Time Seen by Provider: 02/01/24 12:37
History of Present Illness
History of Present Illness:
This an 78-year-old female presents with persistent and worsening shortness of breath. She states this started after her iron infusion on Sunday. She has never had an iron infusion. She has a history of chronic anemia. Patient states she also
has had some leg swelling that has been progressive. Patient reports shortness of breath at night and with exertion. She also reports a little shortness of breath at rest. Patient does states she would like to sit outside the bed because she
feels more short of breath laying back. No fevers. No chest pain.
Past History
Past History
ED Past Medical History: HTN, IDDM and Other (Hypoglycemia events)
ED Past Surgical History: Other
Social History
Tobacco: Non-smoker
Alcohol: None
Drug: None
Personal: Other
Living: alone
Employment: Not employed
Family History
Family History: Diabetes
Phy Exam
Physical Exam
Physical Exam:
CONSTITUTIONAL Patient alert and oriented to person, place and time. Well-appearing. Vital signs reviewed.
HEAD atraumatic, normocephalic.
EYES eyelids normal to inspection, Pupils equally round and reactive to light, Extraocular muscles intact, Conjunctiva normal, Sclera normal.
NECK normal range of motion, Trachea midline, JVD noted.
RESPIRATORY CHEST No respiratory distress noted, Chest expansion equal, diminished at bilateral bases
CARDIOVASCULAR regular rate and rhythm, Heart sounds normal.
BACK normal inspection, no obvious deformities
UPPER EXTREMITY range of motion normal, Motor strength normal, no cyanosis, no edema.
LOWER EXTREMITY range of motion normal, Motor strength normal, no cyanosis, bilateral lower extremity edema.
NEURO Speech normal, No focal motor deficits, [place] coma scale 15, Memory normal, Cranial Nerves intact to screening exam.
SKIN skin warm, dry, and normal in color.
PSYCHIATRIC patient oriented to person place and time, Normal affect.
Scores
Heart Failure Risk
Heart Failure Risk Score: Yes
History of Stroke or TIA: No
History of intubation for respiratory distress: No
Heart rate on ED arrival >/= 110: No
SaO2 <90% on arrival on room air: No
HR >/=110 during 3min walk test (or too ill to perform test): Yes
ECG has acute ischemic changes: No
Urea >/=12mmol/L (BUN 33.6mg/dL): No
Serum CO2>/=35mmol/L: No
Troponin I or T elevated to [place] Level (0.4mg/dL): No
NT-proBNP >/=5,000ng/L (5,000pg/ml): Yes
HF Risk Score: 3
Admission Status: HIGH RISK 15.9% Consider SNF treatment or admission to hospital
Course
Orders/Labs/Results
Orders:
Orders
02/01/24 11:50
EKG [Electrocardiogram (*1)] Urgent
Reason for Study: Palpitations
EKG- Treatment ONCE
02/01/24 12:55
Complete Blood Count/With Diff Urgent
Comprehensive Metabolic Panel Urgent
NT-proBNP Urgent
Troponin I Urgent
Comment: ADD ON
02/01/24 14:08
CR Chest - 2 Views Urgent
Comment:
Reason For Exam: sob
02/01/24 14:20
Add On- LAB Urgent
Tests Added?: troponin
02/01/24 Dinner
Sodium, 4 Gram (LA)
At Your Request: Full Participation
02/01/24 15:39
Furosemide [Lasix] 40 mg IV NOW STA
02/01/24 17:29
Admit/Transfer Patient As Directed
Co-Sign Provider:
Level of Care: Inpatient admission
Assign to:: Telemetry
Physician / Group: Mirsky/Hospitalist
Diagnosis: CHF
Reason for Telemetry: Arrhythmia
Date to Stop Telemetry: 02/04/24
Time to Stop Telemetry: 11:00
Reason for Hospitalization: Acute Respiratory Distress
CHF
Chronic Anemia
Expected length of stay greater than two midnights?: Yes
ELOS- Estimated Length of Stay in days: 4
I certify the patient meets the requirements for IP care: Yes
PRN Pain Medication Management As Directed
May give lesser potent ordered pain med per pt: Yes
preference::
Protocol:: Medication orders for pain may be administered in a
manner that supports deferring to patient preference
when the pt is:
- Requesting an ordered lesser potent pain medication.
Least to most potent pain medications are defined
as: acetaminophen < NSAID < tramadol < opioids
(morphine, oxycodone, hydromorphone).
- Requesting a lesser dose of the same medication IF
ORDERED.
- Requesting a less intrusive route of administration
if both routes are prescribed by the provider (PO <
IV).
02/01/24 17:31
Code Status As Directed
Resuscitation Status: Full Code
02/01/24 19:45
Bisacodyl [Dulcolax] 10 mg RECTAL [id number] PRN
Docusate W/Senna [Senokot-S] 1 tablet PO BIDPRN PRN
Furosemide [Lasix] 40 mg IV BID AT 0800,1600
Polyethylene Glycol Powder [Miralax] 17 grams PO DAILYPRN PRN
insulin glargine [Basaglar Tempo Pen(U-100)Insln] 10 unit SC QPM
02/01/24 19:45
Consult Cardiology [CARDIOLOGY CONSULT] Routine
Consulting Provider: Ion Carpenter
Was physician already notified: Yes
Activity As Directed
Activity Level: Out of Bed-Early Mobility
Vital Signs As Directed
Frequency: Per unit guidelines
O2 Therapy [RESP] Routine
Nasal Cannula Liter Flow: 2 LPM
Titrate/Wean O2 to maintain O2 sat greater than (%): 88
DX Deep Vein Thrombosis Video Routine
02/01/24 20:00
Heparin 5,000 units SC Q12
02/02/24 05:30
Basic Metabolic Panel IN AM
Complete Blood Count/No Diff IN AM
Ferritin IN AM
Iron IN AM
Magnesium IN AM
Total Iron Binding IN AM
02/02/24 08:00
Aspirin Low Dose EC [Aspir Low (Enteric Coated)] 81 mg PO DAILY
METFORMIN HCl [Glucophage] 500 mg PO BID AT 0800,1700
02/02/24 14:00
Metoprolol Xl [Toprol Xl] 50 mg PO DAILY@1400
02/04/24 11:00
DC Protocol for Telemetry ONCE
Abnormal Lab Results
02/01/24
12:55
RBC 2.69 L 10^6/uL
(4.20-5.40)
Hgb 8.2 L g/dL
(12.0-16.0)
Hct 25.0 L %
(37.0-47.0)
MCHC 32.8 L g/dL
(33.0-37.0)
MPV 10.9 H fL
(7.4-10.4)
Absolute Lymphs (auto) 0.6 L 10^3/uL
(1.2-3.4)
Neutrophils % 78.5 H %
(42.2-75.2)
Lymphocytes % 9.7 L %
(20.5-51.1)
Chloride 110 H mmol/L
(98-107)
Carbon Dioxide 15 L mmol/L
(22-30)
BUN 22 H mg/dl
(7-17)
Creatinine 1.1 H mg/dL
(0.6-1.0)
Alkaline Phosphatase 172 H U/L
(38-126)
02/01/24 12:55
02/01/24 12:55
Vital Signs
Initial and Last Documented VS:
Initial Vital Signs
Temp Pulse Resp BP Pulse Ox
98.1 F 73 18 148/65 99
02/01/24 11:55 02/01/24 11:55 02/01/24 11:55 02/01/24 11:55 02/01/24 11:55
Last Documented Vital Signs
Temp Pulse Resp BP Pulse Ox
98.3 F 74 18 130/60 98
02/02/24 07:10 02/02/24 07:10 02/02/24 07:10 02/02/24 08:07 02/02/24 07:10
MDM/Problems Addressed
MDM/Problems Addressed:
Lower extremity edema, congestive heart failure, chronic anemia
*Pulse Oximetry
Patient hypoxic: no
*EKG
Interpreted by ED Provider?: Yes
Interpretation: abnormal
Rate: normal
Rhythm: sinus
[place]: normal axis
Ischemia: non-specific ST changes
*Patient Placement Coordinator Interpretation
Rate: normal
Interpretation: normal
Rhythm: sinus
*Critical Care Note
Total Time (30-74mins, 75-104mins- exclusive of procedures): Not Applicable
Data Reviewed
Review of Other/Old Records Reveals: Discharge Summary (Discharge summary from December)
Patient Management
Discussion with other providers: Hospitalist
Escalation/DeEscalation of care consider admission/obs:
78-year-old female progressive dyspnea on exertion and at rest. Found to have BNP of 12,000. Lower extremity edema noted. Suspect CHF. Recently here with bump troponin but of note. Admit for IV diuretics and further workup
ED Attending Note
-
Portions of this chart may have been created with voice recognition software.� Occasional wrong word or��sound alike� substitutions may have occurred due to the inherent limitations of voice recognition software.
Discharge Plan
Departure
Patient Disposition: Admit
Date of Disposition: 02/01/24
Time of Disposition: 15:40
Admit to: Telemetry
Presentation/result/management discussed w/ accepting MD/DO: Hospitalist
Discharge Problem:
Congestive heart failure (CHF), Chronic anemia
Interventions
Interventions:
*Risk Screen - Suicide Last Done: 02/01/24 12:49
*General Assessment Last Done: 02/01/24 11:55
*Neglect/Abuse Screening Last Done: 02/01/24 12:49
ED- Fall Risk Assessment Last Done: 02/01/24 12:49
*ED COVID-19 Vaccine History Last Done: 02/01/24 12:49
*Nursing Disposition Last Done: 02/01/24 18:08
ED- Cardiac Assessment Last Done: 02/01/24 12:49
ED- Pulmonary Assessment Last Done: 02/01/24 12:49
Discharge Date and Time
Discharge Date/Time: 02/01/24 19:28
[2024-02-01] MEDS: LASIX 40 MG IV (15:45)
--- NOTE | 2024-02-01 15:55 | EDRN ---
lasix administered, VS WNL, BP elevated, provider notified, the pt has no complaints at this time, the pt is sitting on the side of the bed and does not want to be on rn cardiac, BP cuff, or Sp02 monitor incase she has to go to the bathroom,
this RN educated the importance of the pt being kept on the monitor, the pt still refused, provider notified, will continue to monitor the pt closely
--- NOTE | 2024-02-01 17:00 | EDRN ---
hospitalist currently at the pts bedside, the pt still currently refuses to lay in the stretcher now and is sitting in the chair, the pt also refuses to wear rn cardiac cath, BP cuff, or Sp02 monitor, provider at the pts bedside notified, will
continue to monitor the pt closely
--- NOTE | 2024-02-01 17:54 | W.PN.HOSP.TC ---
Today's Communication/Plan
-
follow wts
IV Lasix
Assessment / Plan
Assessment / Plan
Respiratory Distress
most likely from CHF origin
essential HTN
IDDM
20 yr hx
Hx of Cervical Cancer
onset 5 yrs [employer], as per pt REJI
P:Cardio consult
IV Lasix
Anticipated Discharge: > 48 hours
Subjective/Interval History
-
Date of Service: February 01, 2024
respiratory distress which she relates to receiving IV Fe on Sunday
Objective Data
-
Labs:
Laboratory Results
02/01/24
12:55
WBC 5.9
Hgb 8.2 L
Hct 25.0 L
Plt Count 364
Sodium 141
Potassium 5.0
Chloride 110 H
Carbon Dioxide 15 L
BUN 22 H
Creatinine 1.1 H
Glucose 70
Calcium 9.4
Total Bilirubin 0.3
AST 28
ALT 21
Alkaline Phosphatase 172 H
Vital Signs:
Vital Signs
Temp Pulse Resp BP Pulse Ox
98.1 F 86 20 143/123 96
02/01/24 11:55 02/01/24 15:55 02/01/24 15:55 02/01/24 15:55 02/01/24 15:55
Review of Systems
-
History Source: Patient and Physician
Constitutional: Denies Fever
EENT: Denies No Symptoms Reported
Respiratory: Reports Trouble Breathing; Denies Wheezing
Cardiac: Denies Chest Pain
Abdomen/GI: Reports No Symptoms
Physical Exam
-
General: Well Developed, Well Nourished and No Apparent Distress
HEENT: Normocephalic, Atraumatic and Moist Mucous Membranes
Respiratory: Rales (bibasilar rales)
Cardiac: Regular Rhythm and S1/S2
GI: Soft, Nontender and Nondistended
Musculoskeletal: No Clubbing, No Cyanosis, Edema, Right Lower Extrem and Edema, Left Lower Extrem
--- NOTE | 2024-02-01 18:07 | EDRN ---
this RN called the receiving unit and notified them that paper report was going to be tubed up
--- NOTE | 2024-02-01 18:25 | EDRN ---
this RN entered the pts room and attempted to speak to the pt about placing the pt on the supervisor coating, the pt refused and stated that she didn't need it, the pt is sitting in chair in the room, no s/s of distress, no c/o SOB, awaiting for the pt
to go to her room, will continue to monitor the pt closely
[2024-02-01] MEDS: LASIX IV (20:41)
[2024-02-01] MEDS: HEPARIN 5000 UNITS SC (20:42)
[2024-02-01 21:52] LABS: Glucose - Point of Care 187 mg/dl (70-99)
[2024-02-01] MEDS: LANTUS 0.1 UNITS SC (21:53)
[2024-02-02 03:30] VITALS: BP 133/68
[2024-02-02 05:50] LABS: Hematocrit 22.4 % (37.0-47.0); Hemoglobin 7.2 g/dL (12.0-16.0); Mean Corp Hgb Conc. 32.1 g/dL (33.0-37.0); Mean Corpuscular Hgb 28.9 pg (27.0-31.0); Mean Platelet Volume 10.5 fL (7.4-10.4); Platelet Count 330 10^3/uL (130-400); Red Blood Cell Count 2.49 10^6/uL (4.20-5.40); Red Cell Dist. Width 13.4 % (11.5-14.5); White Blood Cell Count 4.4 10^3/uL (4.8-10.8)
[2024-02-02 06:00] VITALS: BMI 23.5
[2024-02-02 06:14] LABS: Blood Urea Nitrogen 21 mg/dl (7-17); Calcium 8.8 mg/dl (8.4-10.2); Carbon Dioxide 21 mmol/L (22-30); Chloride 111 mmol/L (98-107); Estimated Creatinine Clearance 31 ml/min; Glucose 61 mg/dl (70-99); Iron 79 ug/dl (37-170); Magnesium 1.6 mg/dl (1.6-2.3); Potassium 4.5 mmol/L (3.5-5.1); Sodium 142 mmol/L (135-145)
[2024-02-02 06:23] LABS: Percent Saturation 30 % (20-50); Total Iron Binding Capacity 257 ug/dl (265-497)
[2024-02-02 07:10] VITALS: BP 139/72
[2024-02-02 07:17] LABS: Glucose - Point of Care 52 mg/dl (70-99)
[2024-02-02] MEDS: HEPARIN 5000 UNITS SC (08:06)
[2024-02-02] MEDS: ASPIR LOW (ENTERIC COATED) 81 MG PO (08:06)
[2024-02-02] MEDS: GLUCOPHAGE 500 MG PO ×2 (08:06→17:08)
[2024-02-02] MEDS: LASIX 40 MG IV ×2 (08:07→15:20)
--- NOTE | 2024-02-02 09:35 | CON.CAR ---
Addendum entered and electronically signed by Ion Carpenter MD 02/02/24 15:24:
78 yo female with cervical cancer, chronic anemia, HTN, DM, moderate MR and moderate MS, admission over summer with suspected Type II NM (declined outpatient stress test) admitted with SOB and edema. No chest pain. Exam with RRR, II/ systolic
murmur, 1+ LE edema.
SOB: likely component of acute HFPEF, with anemia also contributing. She will be getting 1u pRBC today. Continue lasix 40mg IV bid.
Original Note:
Consultation
Consultation Request
Date/Time Consultation Requested: 02/01/2024 19:45
Date/Time Consultation Performed: 02/02/2024 09:30
Requesting Provider: Dr. Young
Performing Provider: LI Orozco for Dr. Carpenter
Reason for Consultation: Acute heart failure
Medical History
-
Chief Complaint: Shortness of breath
History of Present Illness:
Anabelle Terrell is a 78 year old with cervical cancer, hypertension, type 2 diabetes, and peripheral neuropathy who presented to the emergency department with a chief complaint of shortness of breath. She reports she got her first iron infusion on
Sunday (01/28/2024). She believes her shortness of breath started as mild at that day and got worse throughout the week. She also has progressive lower extremity edema. She endorses orthopnea. She is having no chest pain. Her proBNP was found to
be 12,000. No proBNP for comparison. Troponin <0.012.
She had a recent admission in October, with a fall. She was found to have profound hypoglycemia and an abnormal troponin. Her echocardiogram did not show any wall motion abnormality at that time. She declined stress testing in the outpatient
setting.
The patient has a lots of social issues in the outpatient setting. These are all surrounding her son, Krystian. He lives with her. AAA has been involved in the past.
Past Medical History
Past Medical History: Cancer (Cervical), HTN, Hypercholesterolemia, NIDDM and Renal Failure (CKD)
Past Surgical History: , Orthopedic and Tonsilectomy
Social History
Tobacco: Non-Smoker
Alcohol: None
Living: With Family (Older son.)
Employment: Retired
Family History
Family History: Reviewed & Not Pertinent
Allergies / Home Medications
Allergy/AdvReac Type Severity Reaction Status Date / Time
risperidone [From Risperdal] Allergy Intermediate Unknown Verified 02/01/24 11:55
grass pollen-sweet vernal, Allergy Unknown Verified 02/01/24 11:55
standardized
[Grass Poll-Sweet Vernal
Grass]
house dust Allergy Unknown Verified 02/01/24 11:55
mold Allergy Unknown Verified 02/01/24 11:55
pollen extracts Allergy Unknown Verified 02/01/24 11:55
�Medication �Instructions �Recorded �Confirmed �Type
metoprolol succinate 50 mg 50 mg PO DAILY@1400 04/15/23 02/01/24 History
tablet,extended release 24 hr
aspirin 81 mg tablet,delayed 81 mg PO DAILY #30 tabs 11/07/23 02/01/24 Rx
release (Enteric Coated Aspirin)
metformin 500 mg tablet 500 mg PO BID AT 0800,1700 #1 tab 11/08/23 02/01/24 Rx
insulin glargine 100 unit/mL (3 10 unit SC QPM 01/28/24 02/01/24 History
mL) subcutaneous pen, sensor
(Basaglar Tempo Pen (U-100)
Insulin)
Review of Systems
-
History Source: Patient
All other systems: Negative unless noted
Constitutional: No Symptoms
EENT: No Symptoms
Respiratory: No Symptoms
Cardiac: No Symptoms
Abdomen/GI: No Symptoms
: No Symptoms
Musculoskeletal: No Symptoms
Skin: No Symptoms
Neurological: No Symptoms
Endocrine: No Symptoms
Hematologic/Lymphatic: No Symptoms
Physical Exam
Vital Signs
Temp Pulse Resp BP Pulse Ox
98.3 F 74 18 130/60 98
02/02/24 07:10 02/02/24 07:10 02/02/24 07:10 02/02/24 08:07 02/02/24 07:10
Lab Results
02/02/24 05:30
02/02/24 05:30
Troponin I < 0.012 ng/ml 02/01/24 12:55
Hup-P-Iharchetnyn Pept [id number] pg/ml 02/01/24 12:55
Physical Exam
General: Well Developed, Well Nourished, No Apparent Distress and Comfortable
HEENT: Normocephalic, Anicteric and Moist Mucous Membranes
Respiratory: Clear and Non Labored Respirations
Cardiac: S1/S2, Regular Rhythm and Peripheral Edema (+2 LE edema)
Breast: Deferred by me
GI: Soft, Non Tender, Non Distended and Normal Bowel Sounds
Rectal: Deferred by Provider
Genito-urinary: No Costovertebral Tender
Musculoskeletal: No Clubbing and No Cyanosis
Skin: Warm and Dry
Neuro: AO x 3
Hematologic/Lymphatic: No Lymphadenopathy
Psych: Calm
Impression / Plan
-
Background: 78F with cervical cancer, hypertension, type 2 diabetes, and peripheral neuropathy who presented to the emergency department with a chief complaint of shortness of breath.
HFpEF, acute, with known mitral valve disease
-With orthopnea and lower extremity edema
-Diuresis with furosemide 40 mg IV twice daily
-Case management to [facility] SGLT2, may need to adjust oral hypoglycemic agents as she has had a history of profound hypoglycemia during her last admission
-She would benefit from lower extremity compression, ordered
-She is at her lowest documented weight, dry weight will need to be determined
-Trend daily weight, I's/O, and BMP with diuresis
Mixed mitral valve disease
-Dense MAC
-Mod calcific MS
-Mod MR
Anemia of chronic disease, acute on chronic
-Recently started on iron infusions
-Plan for PRBC today given hemoglobin of 7.2, furosemide after
-No acute bleeding
HTN, chronic, stable
CKD3b, trend with diuresis
Type II diabetes, on insulin & oral agent
Cervical cancer, follows with Dr. Hoyt, recently had a CT scan at [facility]
Data:
TTE, 11/05/23:
Normal biventricular size and systolic function without regional wall motion
abnormality.
Moderate mitral regurgitation(may be under estimated in the setting of acoustic
shadowing). Moderate functional mitral stenosis.
No prior study available for comparison.
[2024-02-02 11:15] VITALS: BP 135/75
--- NOTE | 2024-02-02 11:50 | W.PN.HOSP.TC ---
Addendum entered and electronically signed by Keo Young MD 02/02/24 16:49:
nursing noted blood per rectum
repeat Hgb was 8.2, though this is lower than her baseline (9.2), it is exactly what her Hgb was on admission and thus will hold off on transfusing at this time. Nursing is aware
Will consult GI in morning
Original Note:
Today's Communication/Plan
-
Transfuse blood
Assessment / Plan
Assessment / Plan
Respiratory Distress
most likely from CHF origin, exacerbated by anemia
wt 57.8-->56.3kg
Chronic Anemia
Pt relates becoming sick to having received IV Fe 4 days [facility] CRUISE
Hgb 9.3-->8.2-->7.2
discussed with pt drop in Hgb and need to give blood, she was hesitant, resulting in long discussion and eventually was in agreement
essential HTN
IDDM
20 yr hx
glu 187, 52
with drop in glu, will stop Lantus and follow sugars
Hx of Cervical Cancer
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
P:Cardio consult
IV Lasix
T&S
Transfuse 1 unit
check Fe studies
check stool for occult blood
consider GI consult &/or Heme consul
Full Code
extensive complex visit
Anticipated Discharge: > 48 hours
Subjective/Interval History
-
Date of Service: February 02, 2024
Believes she is breathing better, though concerned she could have blood clots
Objective Data
-
Labs:
Laboratory Results
02/02/24
05:30
WBC 4.4 L
Hgb 7.2 L
Hct 22.4 L
Plt Count 330
Sodium 142
Potassium 4.5
Chloride 111 H
Carbon Dioxide 21 L
BUN 21 H
Creatinine 1.1 H
Glucose 61 L
Calcium 8.8
Vital Signs:
Vital Signs
Temp Pulse Resp BP Pulse Ox
98.3 F 74 18 130/60 98
02/02/24 07:10 02/02/24 07:10 02/02/24 07:10 02/02/24 08:07 02/02/24 07:10
Review of Systems
-
History Source: Patient and Physician
Constitutional: Denies Fever
EENT: Denies No Symptoms Reported
Respiratory: Reports Trouble Breathing; Denies Wheezing
Cardiac: Denies Chest Pain
Abdomen/GI: Reports No Symptoms
Physical Exam
-
General: Well Developed, Well Nourished, No Apparent Distress and Appears Chronically Ill
HEENT: Normocephalic, Atraumatic and Moist Mucous Membranes
Respiratory: Rales (bibasilar rales, have decreased)
Cardiac: Regular Rhythm and S1/S2
GI: Soft, Nontender and Nondistended
Musculoskeletal: No Clubbing, No Cyanosis, Edema, Right Lower Extrem (3+) and Edema, Left Lower Extrem (3+)
Neuro: Awake, Alert and Oriented
[2024-02-02 13:09] LABS: % Basophils 0.9 % (0-2); % Eosinophils 3.3 % (0-6); % Immature Granulocytes 0.6 % (0-0.5); % Monocytes 8.4 % (1.7-9.3); % Neutrophils 75.8 % (42.2-75.2); Absolute Basophils 0.1 10^3/uL (0-0.2); Absolute Eosinophils 0.2 10^3/uL (0-0.7); Absolute Lymphocytes 0.6 10^3/uL (1.2-3.4); Absolute Monocytes 0.5 10^3/uL (0.1-0.6); Absolute Neutrophils 4.1 10^3/uL (1.4-6.5); Hematocrit 25.6 % (37.0-47.0); Hemoglobin 8.2 g/dL (12.0-16.0); Mean Corpuscular Volume 93.8 fL (81.0-99.0); Mean Platelet Volume 10.8 fL (7.4-10.4); Nucleated Red Blood Cells % 0 %; Platelet Count 354 10^3/uL (130-400); Red Blood Cell Count 2.73 10^6/uL (4.20-5.40); Red Cell Dist. Width 13.8 % (11.5-14.5); White Blood Cell Count 5.4 10^3/uL (4.8-10.8)
[2024-02-02 13:10] LABS: Iron 71 ug/dl (37-170)
[2024-02-02 13:20] LABS: Percent Saturation 25 % (20-50); Total Iron Binding Capacity 284 ug/dl (265-497)
[2024-02-02 15:10] VITALS: BP 136/73
[2024-02-02] MEDS: TOPROL XL 50 MG PO (15:19)
[2024-02-02 16:31] LABS: Glucose - Point of Care 308 mg/dl (70-99)
--- NOTE | 2024-02-02 16:46 | CM ---
Addendum entered by Cecelia Tucker RN 02/02/24 16:51:
CM Consult: [facility] check for Farxiga and Jardiance - both > $390 per [facility]. Called her pharmacy however no answer. Informed patient would verify with her pharmacy however she says she will decline both of these drugs as they
are 'too new, and have too many side effects'---> message to Genoveva Umaña NP & Dr Young.
Original Note:
Patient with Dx Respiratory Distress likely CHF. Room air. Receiving IV Lasix. Per nurse assessment; assist of 1, ambulatory in room.
Met with patient who resides with her son Krystian in a 2 story house.
The patient has been independent in ADLs and ambulation sometimes using her RW when out.
DME - [facility]
VN - current with [facility]
SNF - [facility]
PCP - Mini Wilde
Pharmacy - [facility]
Offered VN for HF Education and patient declined. She isn't sure she wants to resume [facility] at d/c.
No CM d/c needs identified.
Plan home.
--- NOTE | 2024-02-02 16:52 | PTCARENOTE ---
Patient with bright red blood per rectum. Patient states she did not have a BM but passed gas. Patient states that she has hemmorhoids. Patient has never seen a GI doctor. Dr. Young aware and is consulting GI. Repeat Hgb 8.2 - holding unit of
packed RBCs and will repeat Hgb in the am. Patient pale but not symptomatic.
--- NOTE | 2024-02-02 18:19 | PTCARENOTE ---
Patient with accu check of 308 prior to dinner. Metformin given as scheduled. Dr. Young made aware. No additional coverage at this time.
[2024-02-02 19:52] VITALS: BP 123/61
[2024-02-02 21:30] LABS: Glucose - Point of Care 192 mg/dl (70-99)
[2024-02-02] MEDS: HEPARIN SC (22:01)
[2024-02-02 22:29] LABS: Hematocrit 21.3 % (37.0-47.0)
[2024-02-02 23:29] VITALS: BP 137/64
--- NOTE | 2024-02-03 | PTCARENOTE ---
Pt had BM- noticed red blood but states she has hemmorhoids. OFFSET PRINTER ordered cream and Q8 H&H. Hgb-7.0. pt asymptomatic- no complaints of dizziness. VSS. Will recheck hgb @5am
[2024-02-03] MEDS: PREPARATION H MAX STRENGTH PAIN RELIEF CREAM 1 APPLIC RECTAL (00:10)
[2024-02-03 03:42] VITALS: BP 127/60
[2024-02-03 03:52] LABS: Glucose - Point of Care 126 mg/dl (70-99)
[2024-02-03 06:00] VITALS: BMI 22.5
[2024-02-03 06:24] LABS: % Basophils 0.6 % (0-2); % Eosinophils 4.5 % (0-6); % Immature Granulocytes 0.8 % (0-0.5); % Lymphocytes 14.8 % (20.5-51.1); % Monocytes 9.1 % (1.7-9.3); % Neutrophils 70.2 % (42.2-75.2); Absolute Eosinophils 0.2 10^3/uL (0-0.7); Absolute Lymphocytes 0.8 10^3/uL (1.2-3.4); Absolute Monocytes 0.5 10^3/uL (0.1-0.6); Absolute Neutrophils 3.6 10^3/uL (1.4-6.5); Hematocrit 24.3 % (37.0-47.0); Hemoglobin 8.1 g/dL (12.0-16.0); Mean Corp Hgb Conc. 33.3 g/dL (33.0-37.0); Mean Platelet Volume 10.4 fL (7.4-10.4); Nucleated Red Blood Cells % 0 %; Platelet Count 333 10^3/uL (130-400); Red Cell Dist. Width 13.7 % (11.5-14.5); White Blood Cell Count 5.1 10^3/uL (4.8-10.8)
[2024-02-03 06:25] LABS: Hematocrit 24.8 % (37.0-47.0); Hemoglobin 8.1 g/dL (12.0-16.0)
[2024-02-03 06:57] LABS: Glucose - Point of Care 104 mg/dl (70-99)
[2024-02-03 07:25] VITALS: BP 140/66
[2024-02-03] MEDS: GLUCOPHAGE 500 MG PO ×2 (09:43→17:06)
[2024-02-03] MEDS: LASIX 40 MG IV ×2 (09:43→17:06)
[2024-02-03] MEDS: ASPIR LOW (ENTERIC COATED) 81 MG PO (09:43)
[2024-02-03] MEDS: HEPARIN 5000 UNITS SC (09:43)
[2024-02-03 11:20] VITALS: BP 139/66
[2024-02-03 11:57] LABS: Glucose - Point of Care 229 mg/dl (70-99)
--- NOTE | 2024-02-03 12:30 | CON.GI ---
Consultation
-
Date/Time Consultation Performed: 02/03/24
Performing Provider: Jatin Marie MD
Reason for Consultation: rectal bleeding, anemia
Medical History
Chief Complaint / HPI
Chief Complaint: SOB
History of Present Illness:
The patient is an 78-year-old female with past medical history as noted who presents with shortness of breath. She had an iron infusion on Sunday and since then had been feeling weak and short of breath. We are consulted for anemia and rectal
bleeding. She has a history of chronic anemia. Looking back even dating back to 2010 had been in the 8-10 range. On presentation here she was 8.2, then 7.2 and alternating between 8 and 7 without transfusion. She did have an episode of bright
red blood per rectum 2 nights ago, which she describes as a small amount of bright red blood on the toilet paper with brown stool. She denies any bloody stools, melena, abdominal pain, change in bowel habits. She has never had a colonoscopy. She
had extensive radiation and then a second round of radiation for cervical cancer, last ending about a year and a half ago. She is currently feeling a bit better, moving around a little bit though still having some dyspnea.
Past Medical History
Past Medical History: Other (Cervical cancer status post radiation x 2 as described above, diabetes, hypertension, Moderate MR, moderate MS, chronic renal insufficiency)
Past Surgical History: Other (, tonsillectomy, orthopedic surgery)
Social History
Tobacco: Non-Smoker
Alcohol: None
Family History
Family History: Reviewed & Not Pertinent
Allergies / Home Medications
Allergy/AdvReac Type Severity Reaction Status Date / Time
risperidone [From Risperdal] Allergy Intermediate Unknown Verified 02/01/24 11:55
grass pollen-sweet vernal, Allergy Unknown Verified 02/01/24 11:55
standardized
[Grass Poll-Sweet Vernal
Grass]
house dust Allergy Unknown Verified 02/01/24 11:55
mold Allergy Unknown Verified 02/01/24 11:55
pollen extracts Allergy Unknown Verified 02/01/24 11:55
�Medication �Instructions �Recorded
metoprolol succinate 50 mg 50 mg PO DAILY@1400 04/15/23
tablet,extended release 24 hr
aspirin 81 mg tablet,delayed 81 mg PO DAILY #30 tabs 11/07/23
release (Enteric Coated Aspirin)
metformin 500 mg tablet 500 mg PO BID AT 0800,1700 #1 tab 11/08/23
insulin glargine 100 unit/mL (3 10 unit SC QPM 01/28/24
mL) subcutaneous pen, sensor
(Basaglar Tempo Pen (U-100)
Insulin)
Review of Systems
-
All other systems: A 12 pt ROS was Negative except as stated above in HPI
Vital Signs
Temp Pulse Resp BP Pulse Ox
97.8 F 66 16 140/66 100
02/03/24 07:25 02/03/24 07:25 02/03/24 07:25 02/03/24 07:25 02/03/24 08:40
Physical Exam
Exam
General: NAD
HEENT: MMM, anicteric, no lymphadenopathy
Heart: Regular, 2/6 systolic murmurs
Lungs: CTA bilaterally
Abdomen: normal bowel sounds, soft, no tenderness, no rebound or guarding, no masses, bruits or ascites
Extremeties: 2+ edema
Skin: no rashes
Results
WBC 5.1 10^3/uL (4.8-10.8) 02/03/24 05:50
Hgb 8.1 g/dL (12.0-16.0) L 02/03/24 05:50
Hgb 8.1 g/dL (12.0-16.0) L 02/03/24 05:50
Hct 24.3 % (37.0-47.0) L 02/03/24 05:50
Hct 24.8 % (37.0-47.0) L 02/03/24 05:50
MCV 90.0 fL (81.0-99.0) 02/03/24 05:50
Plt Count 333 10^3/uL (130-400) 02/03/24 05:50
Absolute Neuts (auto) 3.6 10^3/uL (1.4-6.5) 02/03/24 05:50
Sodium 142 mmol/L (135-145) 02/02/24 05:30
Potassium 4.5 mmol/L (3.5-5.1) 02/02/24 05:30
Chloride 111 mmol/L (98-107) H 02/02/24 05:30
Carbon Dioxide 21 mmol/L (22-30) L 02/02/24 05:30
BUN 21 mg/dl (7-17) H 02/02/24 05:30
Creatinine 1.1 mg/dL (0.6-1.0) H 02/02/24 05:30
Calcium 8.8 mg/dl (8.4-10.2) 02/02/24 05:30
Total Bilirubin 0.3 mg/dl (0.2-1.3) 02/01/24 12:55
AST 28 U/L (14-36) 02/01/24 12:55
ALT 21 U/L (0-35) 02/01/24 12:55
Alkaline Phosphatase 172 U/L (38-126) H 02/01/24 12:55
Diagnostic Image Results:
Prior GI Procedures:
EGD:
Colonoscopy:
Assessment / Plan
-
1. Anemia: Likely multifactorial, normocytic, though did receive iron per her PCP. Iron studies here did not suggest iron deficiency though were done after her iron infusion, and again likely mixed with more anemia of chronic disease. She did
have 1 episode of bright red blood that sounds more hemorrhoidal nature, and likely not contributing to her anemia which is fluctuated without transfusion while in the hospital. Radiation proctitis is also possible. Other etiologies including
malignancy are not excluded the do seem a bit less likely. We had an extensive discussion about the role of colonoscopy to evaluate for source of bleeding including malignancy, and she adamantly declines any colonoscopy. At this point would
continue supportive care, iron supplementation if needed. If she has any signs of brisk active bleeding please call back, or if she reconsiders and would consider colonoscopy in the future.
We will sign off for now, please go back with any further questions.
-
-
Thank you for consultation and allowing me to participate in the patient's care. Please call the credit control administrator GI physician during the after hours with any questions or concerns.
[2024-02-03 13:15] LABS: Hematocrit 25.6 % (37.0-47.0); Hemoglobin 8.7 g/dL (12.0-16.0)
[2024-02-03] MEDS: TOPROL XL 50 MG PO (13:16)
--- NOTE | 2024-02-03 14:37 | CM ---
Patient stated that she was planning to return home with [facility] to restart and that she was very familiar with [facility] and wanted to go home. CM will continue to follow for discharge planning needs.
Plan; home with [facility] pending acceptance
[2024-02-03 15:20] VITALS: BP 124/60
--- NOTE | 2024-02-03 17:01 | W.PN.HOSP.TC ---
Today's Communication/Plan
-
follow lytes and Hgb. Pt CHF symptoms have improved. Continue IV Lasix
Follow glu, consider resumption of Lantus pending glu
Assessment / Plan
Assessment / Plan
Respiratory Distress
better with fluid loss
most likely from CHF origin, exacerbated by anemia,
wt 57.8-->56.3-->53.97kg
Chronic Anemia
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
Hgb 9.3-->8.2-->7.2-->8.2-->7.0-->8.1-->8.1-->8.7
very variable Hgb.
call from nursing, was passing BRBPR streaks, most consistent with hemarroidal bleed
essential HTN
IDDM
20 yr hx
glu 187, 52
with drop in glu, stopped Lantus and follow sugars, since stopping Lantus, glucose has significantly risen, though variable and running in 104-293 range. will need to follow and consider resumption, ? on split dosing
Hx of Cervical Cancer
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
P:Cardio consult appreciated
IV Lasix
T&S
Will hold on transfusion
Fe studies: Fe 71/TIBC 284/%sat25%/Ferritin 618/vit B12, Folate - pending
check stool for occult blood
appreciate input from GI, consider Heme consult
Full Code
extensive complex visit
Anticipated Discharge: 24 - 48 hours
Subjective/Interval History
-
Date of Service: February 03, 2024
Denies chest pain
Objective Data
-
Labs:
Laboratory Results
02/03/24 02/03/24 02/03/24
05:50 05:50 05:50
WBC 5.1
Hgb 8.1 L 8.1 L
Hct 24.3 L 24.8 L
Plt Count 333
02/03/24
13:06
WBC
Hgb 8.7 L
Hct 25.6 L
Plt Count
Vital Signs:
Vital Signs
Temp Pulse Resp BP Pulse Ox
97.5 F 66 16 124/60 100
02/03/24 15:20 02/03/24 15:20 02/03/24 15:20 02/03/24 15:20 02/03/24 15:20
I&O
02/02/24 02/03/24 02/04/24
06:59 06:59 06:59
Intake Total 720 / 720
Balance 720 / 720
Review of Systems
-
History Source: Patient and Physician
Constitutional: Denies Fever
EENT: Denies No Symptoms Reported
Respiratory: Reports Trouble Breathing; Denies Wheezing
Cardiac: Denies Chest Pain
Abdomen/GI: Reports No Symptoms
Physical Exam
-
General: Well Developed, Well Nourished, No Apparent Distress and Appears Chronically Ill
HEENT: Normocephalic, Atraumatic and Moist Mucous Membranes
Respiratory: Negative Rales (bibasilar rales,resolved)
Cardiac: Regular Rhythm and S1/S2
GI: Soft, Nontender and Nondistended
Musculoskeletal: No Clubbing, No Cyanosis, Edema, Right Lower Extrem (1+) and Edema, Left Lower Extrem (1+)
Neuro: Awake, Alert and Oriented
[2024-02-03 17:03] LABS: Glucose - Point of Care 293 mg/dl (70-99)
--- NOTE | 2024-02-03 17:24 | W.PN.CD ---
Today's Communication / Plan
-
cont IV lasix
echo
Impression / Plan
-
Background: 78F with mod MR and MS, cervical cancer, hypertension, type 2 diabetes, and peripheral neuropathy who presented to the emergency department with a chief complaint of shortness of breath.
HFpEF, acute, with known mitral valve disease
-With orthopnea and lower extremity edema
-patient declines SGLT2i due to p[place] and 'too new'
-cont diuresis with furosemide 40 mg IV twice daily
Mixed mitral valve disease
-Dense MAC
-Mod calcific MS
-Mod MR
-follow up echo ordered
Anemia of chronic disease, acute on chronic
-Recently started on iron infusions
HTN, chronic, stable
CKD3b, trend with diuresis
Type II diabetes, on insulin & oral agent
Cervical cancer, follows with Dr. Hoyt, recently had a CT scan at [place]
Data:
TTE, 11/05/23:
Normal biventricular size and systolic function without regional wall motion
abnormality.
Moderate mitral regurgitation(may be under estimated in the setting of acoustic
shadowing). Moderate functional mitral stenosis.
No prior study available for comparison.
Physical Exam
Vital Signs/Labs
Vital Signs
Temp Pulse Resp BP Pulse Ox
97.5 F 66 16 124/60 100
02/03/24 15:20 02/03/24 15:20 02/03/24 15:20 02/03/24 15:20 02/03/24 15:20
02/02/24 02/03/24 02/04/24
06:59 06:59 06:59
Actual Weight 56.274 kg 53.977 kg
02/03/24 13:06
02/02/24 05:30
Magnesium 1.6 mg/dl (1.6-2.3) 02/02/24 05:30
02/01/24
12:55
Cut-G-Qkpjwaccbbi Pept [id number]
LAB Results
02/01/24
12:55
Troponin I < 0.012
Physical Exam
Constitutional: No acute distress and Comfortable
EENT: Moist mucous membranes
Cardiovascular: Rhythm & rate is regular, Pedal edema present, JVD present and Systolic murmur present
Respiratory: Respiratory effort normal and Lungs clear to auscul.
Neuro/Psych: AO x 3
Data Reviewed
-
Date of Service: February 03, 2024
EKG: Other (Tele: SR 70s)
Labs: Labs Reviewed by me
[2024-02-03 19:00] VITALS: BP 126/60
[2024-02-03 21:29] LABS: Glucose - Point of Care 390 mg/dl (70-99)
[2024-02-03] MEDS: HEPARIN SC (22:32)
[2024-02-03 23:19] VITALS: BP 128/59
[2024-02-03 23:53] LABS: Glucose - Point of Care 316 mg/dl (70-99)
[2024-02-04] MEDS: NOVOLOG FLEXPEN 3 UNITS SC (00:42)
[2024-02-04 03:07] LABS: Glucose - Point of Care 232 mg/dl (70-99)
[2024-02-04 03:21] VITALS: BP 108/48; BMI 22.3
[2024-02-04 08:02] LABS: Glucose - Point of Care 160 mg/dl (70-99)
[2024-02-04 08:05] LABS: % Basophils 0.8 % (0-2); % Eosinophils 3.8 % (0-6); % Immature Granulocytes 0.8 % (0-0.5); % Lymphocytes 12.2 % (20.5-51.1); % Monocytes 8.6 % (1.7-9.3); % Neutrophils 73.8 % (42.2-75.2); Absolute Eosinophils 0.2 10^3/uL (0-0.7); Absolute Lymphocytes 0.6 10^3/uL (1.2-3.4); Absolute Monocytes 0.4 10^3/uL (0.1-0.6); Absolute Neutrophils 3.5 10^3/uL (1.4-6.5); Hemoglobin 7.9 g/dL (12.0-16.0); Mean Corp Hgb Conc. 32.9 g/dL (33.0-37.0); Mean Corpuscular Hgb 30.4 pg (27.0-31.0); Mean Corpuscular Volume 92.3 fL (81.0-99.0); Mean Platelet Volume 10.9 fL (7.4-10.4); Nucleated Red Blood Cells % 0 %; Platelet Count 305 10^3/uL (130-400); White Blood Cell Count 4.8 10^3/uL (4.8-10.8)
[2024-02-04] MEDS: ASPIR LOW (ENTERIC COATED) 81 MG PO (08:14)
[2024-02-04] MEDS: GLUCOPHAGE 500 MG PO (08:14)
[2024-02-04] MEDS: HEPARIN 5000 UNITS SC ×2 (08:14→21:06)
[2024-02-04] MEDS: LASIX 40 MG IV (08:15)
--- NOTE | 2024-02-04 08:24 | W.PN.CD ---
Today's Communication / Plan
-
Change furosemide to 60 mg PO daily.
Check VBG.
Case managemenet consult for sacubitril/valsartan. If too expensive, start lisinopril 2.5 mg daily.
Impression / Plan
-
Impression/Plan: 78F with HTN, NIDDM2 (due to severe hypoglycemia, limiting role for insulin), moderate MR and MS, cervical cancer, hypertension, type 2 diabetes, and peripheral neuropathy who presented to the emergency department with a chief
complaint of shortness of breath after an FeSO4 infusion for chronic anemia.
#HFpEF
-Acute with known mitral valve disease.
-Patient declines SGLT2i due to [place] and 'too new'.
-Change furosemide to 60 mg PO daily.
-Case management consult for sacubitril/valsartan. If too expensive, we will start lisinopril 2.5 mg daily.
#Mixed mitral valve disease
-Dense MAC.
-Mod calcific MS.
-Mod MR.
-follow up echo ordered.
#Anemia of chronic disease
-Acute on chronic.
-History of hemorrhoids and recent BRBPR.
-Recently started on iron infusions.
-GI consulted. DDx includes, hemorrhoids, radiation proctitis, diverticulosis and malignancy. Patient declines further invasive evaluation.
#HTN
-Chronic, stable.
#CKD3b
-Baseline creatinine 1.2-1.5.
-Trend with diuresis.
-Check VBG in light of low HCO3.
-If pH is truly low, check lactate, beta hydroxybutyrate (non-hyperglycemic ketosis?). Uremia seems less likely as BUN is only 37.
#Type II diabetes
-Chronic, prone to episodes of severe hypoglycemia (see prior hospitalization from November 04-2023)
-Continue metformin, cautious insulin use.
#Hx of Cervical cancer
-Follows with Dr. Hoyt, recently had a CT scan at [place].
Subjective/Interval History:
The patient was started on furosemide.
She reported an episode of BRBPR (toilet paper).
GI consulted but patient declines colonoscopy or any other endoscopic/invasive procedure.
Weight is down to 53.5 kg <--54.0 <-- 56.27 < -- 57.83.
Hbg variable, 7.9 this AM, previously 8.7 <-- 8.1 <-- 7.0 <-- 8.2 <-- 7.2 <-- 8.2 (no transfusions this admission).
HCO3 16 this AM. Anion gap = 15, delta/delta suggests both a gapped and non-gapped acidosis.
DATA:
TTE, 11/05/23:
Normal biventricular size and systolic function without regional wall motion
abnormality.
Moderate mitral regurgitation(may be under estimated in the setting of acoustic
shadowing). Moderate functional mitral stenosis.
No prior study available for comparison.
Physical Exam
Vital Signs/Labs
Vital Signs
Temp Pulse Resp BP Pulse Ox
36.8 C 66 15 120/56 99
02/04/24 03:21 02/04/24 08:15 02/04/24 03:21 02/04/24 08:15 02/04/24 03:21
02/02/24 02/03/24 02/04/24
11:59 11:59 11:59
Actual Weight 56.274 kg 53.977 kg 53.524 kg
02/04/24 06:55
Magnesium 1.6 mg/dl (1.6-2.3) 02/02/24 05:30
02/01/24
12:55
Rsd-A-Eyxmmruuaza Pept [id number]
LAB Results
02/01/24
12:55
Troponin I < 0.012
Physical Exam
Constitutional: No acute distress and Comfortable
EENT: Anicteric and Moist mucous membranes
Cardiovascular: Rhythm & rate is regular, JVD pressure is normal, Pedal edema present (Reports chronic LE edema from prior ankle injuries.), S1S2 is normal and Murmur/rub/gallop absent
Respiratory: Respiratory effort normal, Lungs clear to auscul., Wheeze Absent, Crackles Absent and Rhonchi Absent
GI: Soft, Distention absent, Flat, Non tender and Normal bowel sounds
Neuro/Psych: AO x 3
Data Reviewed
-
Date of Service: February 04, 2024
Medical Decision Making: Reviewed Test Results, Independent Historian Assessment and Test Interpretation
EKG: Tracing Personally Visualized and interpreted and Report Reviewed by me
Echo: Report Reviewed by me
X-Ray/CT/US/MRI/NUC/PET: Image Personally Visualized and interpreted and Report Reviewed by me
Labs: Labs Reviewed by me
Old Records: Reviewed
[2024-02-04 08:33] LABS: Blood Urea Nitrogen 37 mg/dl (7-17); Calcium 8.7 mg/dl (8.4-10.2); Carbon Dioxide 16 mmol/L (22-30); Chloride 107 mmol/L (98-107); Estimated Creatinine Clearance 24 ml/min; Glucose 176 mg/dl (70-99); Potassium 4.5 mmol/L (3.5-5.1); Sodium 138 mmol/L (135-145); eGFR 38.03
[2024-02-04 08:35] VITALS: BP 120/56
[2024-02-04 09:42] LABS: Venous Blood Gas B.E. -4.8 mmol/L (-4 to +4); Venous Blood Gas HCO3 20.4 mmol/L (22-27); Venous Blood Gas O2 Sat % 99.9 %; Venous Blood Gas pCO2 37 mmHg (35-48); Venous Blood Gas pH 7.35 (7.32-7.43); Venous Blood Gas pO2 159 mmHg (30-50)
[2024-02-04 11:50] LABS: Glucose - Point of Care 394 mg/dl (70-99)
[2024-02-04] MEDS: NOVOLOG FLEXPEN-LOW RESISTANCE 5 UNITS SC (12:40)
[2024-02-04 12:58] VITALS: BP 143/71
--- NOTE | 2024-02-04 14:36 | W.PN.HOSP.TC ---
Today's Communication/Plan
-
switch to PO lasix
Stop metformin
Insulin management
F/u Lactate with metformin, acidosis, and CKD
Start bicarbonate tabs
Assessment / Plan
Assessment / Plan
#Respiratory Distress
#Acute HFpEF
-improved
-switch to PO lasix
-Case management consult for sacubitril/valsartan. If too expensive, we will start lisinopril 2.5 mg daily
#Valvular Abnormalities
f/u cards outpatient
-f/u echo
#CKD IV
#metabolic acidosis, compensated
-start bicarb tabs
-nephro outpatient f/u
Chronic Anemia
-most likely related to CKD, may require EPO outpatient
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
-F/u with GI, nephro outpatient
-monitor cbc
-denies colonoscopy at this time, f/u gi outpatient
essential HTN
-cont lasix, started on BB
IDDM
-20 yr hx
-now hyperglycemic
-DC metformin with ckd IV and acidosis
-Insulin
-DM management
Hx of Cervical Cancer
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
Full Code
Total time spent on today's encounter was 35 minutes which included time spent in counseling the patient/family regarding diagnosis and treatment plan as listed above, goals of care, and symptom management. Case was discussed with nursing staff,
specialists, and care coordinators/case management. All labs and imaging personally reviewed by me. Remainder the time spent in detailed review of previous records, lab data, imaging, and other medical provider documentation.
Anticipated Discharge: 24 - 48 hours
Subjective/Interval History
-
Date of Service: February 04, 2024
No acute events overnight
Objective Data
-
Labs:
Laboratory Results
02/04/24
06:55
WBC 4.8
Hgb 7.9 L
Hct 24.0 L
Plt Count 305
Sodium 138
Potassium 4.5
Chloride 107
Carbon Dioxide 16 L
BUN 37 H
Creatinine 1.4 H
Glucose 176 H
Calcium 8.7
Vital Signs:
Vital Signs
Temp Pulse Resp BP Pulse Ox
98.1 F 75 16 143/71 100
02/04/24 12:58 02/04/24 12:58 02/04/24 12:58 02/04/24 12:58 02/04/24 12:58
I&O
02/03/24 02/04/24 02/05/24
06:59 06:59 06:59
Intake Total 720 / 720 960 / 960
Balance 720 / 720 960 / 960
Review of Systems
-
History Source: Patient
All other systems: Not reviewed unless documented
Physical Exam
-
General: Well Developed, Well Nourished, No Apparent Distress and Appears Chronically Ill
HEENT: Normocephalic, Atraumatic and Moist Mucous Membranes
Respiratory: Clear to Auscultation
Cardiac: Regular Rhythm and S1/S2
GI: Soft, Nontender and Nondistended
Musculoskeletal: No Clubbing, No Cyanosis, Edema, Right Lower Extrem (1+) and Edema, Left Lower Extrem (1+)
Neuro: Awake, Alert and Oriented
Psych: Calm
Data Reviewed
-
Diagnostic Radiology: Image personally visualized and interpreted and Report Reviewed by me
Ultrasound: Report Reviewed by me
Labs: Labs Reviewed by me
[2024-02-04 15:38] VITALS: BP 142/60
[2024-02-04] MEDS: TOPROL XL 50 MG PO (15:41)
[2024-02-04] MEDS: LASIX 60 MG PO (15:41)
[2024-02-04] MEDS: SODIUM BICARBONATE 650 MG PO ×2 (15:42→21:07)
[2024-02-04 15:44] LABS: Lactic Acid 2.1 mmol/L (0.7-2.0)
--- NOTE | 2024-02-04 16:00 | PTCARENOTE ---
clarification with attending R/T labs. 24hr urine started. Lactate drawn, remaining SSTs are 'send out' labs, and ok to be added to tomorrow's sample.
[2024-02-04 16:17] LABS: Vitamin B12 330 pg/ml (239-931)
[2024-02-04 16:44] VITALS: BP 138/64
[2024-02-04 16:46] LABS: Glucose - Point of Care 188 mg/dl (70-99)
[2024-02-04] MEDS: NOVOLOG FLEXPEN-LOW RESISTANCE 1 UNITS SC (16:50)
[2024-02-04 21:18] LABS: Glucose - Point of Care 300 mg/dl (70-99)
[2024-02-04] MEDS: LANTUS 0.05 UNITS SC (21:19)
[2024-02-04 23:55] VITALS: BP 123/57
[2024-02-05 02:38] LABS: Glucose - Point of Care 271 mg/dl (70-99)
[2024-02-05 05:27] VITALS: BMI 21.6
[2024-02-05 07:10] VITALS: BP 128/59
[2024-02-05 07:27] LABS: Glucose - Point of Care 171 mg/dl (70-99)
--- NOTE | 2024-02-05 08:01 | W.PN.CD ---
Today's Communication / Plan
-
continue current medications
no further cardiac recommendations
I will sign off
Impression / Plan
-
Impression/Plan: 78F with HTN, NIDDM2 (due to severe hypoglycemia, limiting role for insulin), moderate MR and MS, cervical cancer, hypertension, type 2 diabetes, and peripheral neuropathy who presented to the emergency department with a chief
complaint of shortness of breath after an FeSO4 infusion for chronic anemia.
#HFpEF
-Acute with known mitral valve disease.
-Patient declines SGLT2i due to p[place] and 'too new'.
-continue furosemide to 60 mg PO daily.
- Entresto too $$$$, would consider MRA in follow up as op
#Mixed mitral valve disease
-Dense MAC.
-Mod calcific MS.
-Mod MR.
#Anemia of chronic disease
-Acute on chronic.
-History of hemorrhoids and recent BRBPR.
-Recently started on iron infusions.
-GI consulted. DDx includes, hemorrhoids, radiation proctitis, diverticulosis and malignancy. Patient declines further invasive evaluation.
#HTN
-Chronic, stable.
#CKD3b
-Baseline creatinine 1.2-1.5.
-Trend with diuresis.
-Check VBG in light of low HCO3.
-If pH is truly low, check lactate, beta hydroxybutyrate (non-hyperglycemic ketosis?). Uremia seems less likely as BUN is only 37.
#Type II diabetes
-Chronic, prone to episodes of severe hypoglycemia (see prior hospitalization from November 04-2023)
-Continue metformin, cautious insulin use.
#Hx of Cervical cancer
-Follows with Dr. Hoyt, recently had a CT scan at [place].
Subjective/Interval History:
no cp or sob, swelling improved
DATA:
TTE 02/04/24:
CONCLUSIONS
Normal LV size and function with no regional wall motion abnormalities.
LVEF is 55-60% by visual estimation.
Mild concentric LVH.
Normal right ventricular size and function.
Heavy mitral annular calcification with mild mitral stenosis mean gradient 4
mmHg.
Moderate mitral regurgitation.
Estimated pulmonary artery pressure of 30 mmHg assuming a right atrial pressure
of 3 mmHg.
Compared to prior from November 05, 2023, MS is mild with mean gradient of 4,
previously moderate with mean gradient of 7 mmHg.
TTE, 11/05/23:
Normal biventricular size and systolic function without regional wall motion
abnormality.
Moderate mitral regurgitation(may be under estimated in the setting of acoustic
shadowing). Moderate functional mitral stenosis.
No prior study available for comparison.
Physical Exam
Vital Signs/Labs
Vital Signs
Temp Pulse Resp BP Pulse Ox
98.6 F 72 18 123/57 96
02/04/24 23:55 02/04/24 23:55 02/04/24 23:55 02/04/24 23:55 02/04/24 23:55
02/04/24 02/05/24 02/06/24
06:59 06:59 06:59
Actual Weight 53.524 kg 51.795 kg
Magnesium 1.6 mg/dl (1.6-2.3) 02/02/24 05:30
02/01/24
12:55
Dyw-V-Mvemittaaaf Pept [id number]
Physical Exam
Constitutional: No acute distress
Cardiovascular: Rhythm & rate is regular, Pedal edema is absent, JVD pressure is normal, Systolic murmur absent and Diastolic murmur absent
Respiratory: Respiratory effort normal, Lungs clear to auscul., Wheeze Absent, Crackles Absent and Rhonchi Absent
Neuro/Psych: AO x 3
Data Reviewed
-
Date of Service: February 05, 2024
EKG: Other (sinus pvc)
[2024-02-05] MEDS: LASIX 60 MG PO (08:56)
[2024-02-05] MEDS: HEPARIN 5000 UNITS SC (08:56)
[2024-02-05] MEDS: SODIUM BICARBONATE 650 MG PO (08:56)
[2024-02-05] MEDS: ASPIR LOW (ENTERIC COATED) 81 MG PO (08:56)
[2024-02-05] MEDS: NOVOLOG FLEXPEN-LOW RESISTANCE 1 UNITS SC (08:57)
[2024-02-05 09:21] LABS: % Eosinophils 4.6 % (0-6); % Immature Granulocytes 0.5 % (0-0.5); % Lymphocytes 11.1 % (20.5-51.1); % Monocytes 7.3 % (1.7-9.3); % Neutrophils 75.5 % (42.2-75.2); Absolute Eosinophils 0.2 10^3/uL (0-0.7); Absolute Lymphocytes 0.5 10^3/uL (1.2-3.4); Absolute Monocytes 0.3 10^3/uL (0.1-0.6); Absolute Neutrophils 3.1 10^3/uL (1.4-6.5); Hematocrit 24.9 % (37.0-47.0); Hemoglobin 8.2 g/dL (12.0-16.0); Mean Corp Hgb Conc. 32.9 g/dL (33.0-37.0); Mean Corpuscular Hgb 29.9 pg (27.0-31.0); Mean Corpuscular Volume 90.9 fL (81.0-99.0); Mean Platelet Volume 10.9 fL (7.4-10.4); Nucleated Red Blood Cells % 0 %; Platelet Count 366 10^3/uL (130-400); Red Blood Cell Count 2.74 10^6/uL (4.20-5.40); Red Cell Dist. Width 14.6 % (11.5-14.5); White Blood Cell Count 4.1 10^3/uL (4.8-10.8)
[2024-02-05 09:24] LABS: Lactic Acid 1.5 mmol/L (0.7-2.0)
[2024-02-05 09:50] LABS: ALT (SGPT) 17 U/L (0-35); AST (SGOT) 22 U/L (14-36); Albumin 3.7 g/dl (3.5-5.0); Alkaline Phosphatase 151 U/L (38-126); Blood Urea Nitrogen 39 mg/dl (7-17); Calcium 9.1 mg/dl (8.4-10.2); Carbon Dioxide 22 mmol/L (22-30); Chloride 104 mmol/L (98-107); Estimated Creatinine Clearance 28 ml/min; Glucose 194 mg/dl (70-99); Potassium 4.5 mmol/L (3.5-5.1); Sodium 139 mmol/L (135-145); Total Bilirubin 0.3 mg/dl (0.2-1.3); Total Protein 6.3 g/dl (6.3-8.2); eGFR 45.76
[2024-02-05 11:49] LABS: Glucose - Point of Care 259 mg/dl (70-99)
--- NOTE | 2024-02-05 12:04 | VNURNOTE ---
Home Health Liaison spoke with patient to discuss [facility] nurse/therapy, visits, schedule and homebound status. Patient is agreeable and understands that visits at home will be 2-3 x per week to assess and teach medical management. Patient confirms
she has a scale at home. She was recently on [facility] services and was d/c'ed. Patient has [facility] contact information. Patient is aware that [facility] will contact them for start of care in 1-2 days after discharge from . [facility] referral completed in [facility].
[2024-02-05] MEDS: NOVOLOG FLEXPEN-LOW RESISTANCE 3 UNITS SC (12:05)
--- NOTE | 2024-02-05 12:05 | PN.DE.MGMTRT ---
Insulin Management
- -
02/05/2024 Diabetes Management Consult
Patient admitted with sudden onset breathing problem, 01/31, consult today for diabetes management. Patient was recent inpatient 10/2023. A1C 7.1, cr 1.2, eGFR 45.76. Sees Dr. Wilde, [facility] for ongoing diabetes care. On
admission glucose 70 and as low as 52 with HS lantus; dose reduced to 3 units then glucose 394.
Patient is awake alert and oriented able to discuss diabetes management. Discussed with patient the benefit of taking lantus in AM to help cover meals and prevent overnight hypoglycemia, she agrees. Will stop HS lantus today and start AM lantus 8
units tomorrow with metformin 500 mg with breakfast and dinner. Patient able to verbalize change to lantus dose.
Diabetes History
- -
Type of Diabetes: 2
Pre-Admission Diabetes Regimen
02/05/24
08:45
Creatinine 1.2 H
Insulin Pump Settings
IP Diabetes Regimen
02/04/24 02/04/24 02/05/24
16:45 21:17 02:37
Glucose
POC Glucose 188 H 300 H 271 H
02/05/24 02/05/24 02/05/24
07:25 08:45 11:48
Glucose 194 H
POC Glucose 171 H 259 H
Meal type: Breakfast
Amount consumed: 100%
Patient Education
--- NOTE | 2024-02-05 12:36 | W.PN.HOSP.TC ---
Addendum entered and electronically signed by Phuc Nobles MD 02/07/24 18:14:
Stage 1 pressure ulcer sacrum
CKD stage IV
Addendum entered and electronically signed by Phuc Nobles MD 02/07/24 17:58:
[id number]
Original Note:
Today's Communication/Plan
-
-continue furosemide to 60 mg PO daily.
-Bicarb tabs
f/u gi, pcp, cards, nephro outpatient
-f/u cmp in 1 week
insulin adjustment
Assessment / Plan
Assessment / Plan
#Respiratory Distress
#Acute HFpEF
-Patient declines SGLT2i due to [place] and 'too new'.
-continue furosemide to 60 mg PO daily.
-Case management consult for sacubitril/valsartan. If too expensive, we will start lisinopril 2.5 mg daily
#Valvular Abnormalities
f/u cards outpatient
-f/u echo
#CKD IV
#metabolic acidosis, compensated
-start bicarb tabs
-nephro outpatient f/u - lost to follow up with Dr. Mtz due to her cancer appts- advised importance of going back
Chronic Anemia
-most likely related to CKD, may require EPO outpatient
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
-F/u with GI, nephro outpatient
-monitor cbc
-denies colonoscopy at this time, f/u gi outpatient
essential HTN
-cont lasix, started on BB
IDDM
-20 yr hx
-now hyperglycemic
-Insulin, metformin ok
-DM management
Hx of Cervical Cancer
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
Full Code
More than 30 minutes spent in discharge including
Final examination of the patient
Summarizing hospital stay
Instructions for continuing care to all relevant caregivers
Preparation of discharge records, prescriptions, and referral forms
Total time spent (35 in minutes):
Anticipated Discharge: Today
Subjective/Interval History
-
Date of Service: February 05, 2024
no acute events
Objective Data
-
Labs:
Laboratory Results
02/05/24
08:45
WBC 4.1 L
Hgb 8.2 L
Hct 24.9 L
Plt Count 366
Sodium 139
Potassium 4.5
Chloride 104
Carbon Dioxide 22
BUN 39 H
Creatinine 1.2 H
Glucose 194 H
Calcium 9.1
Total Bilirubin 0.3
AST 22
ALT 17
Alkaline Phosphatase 151 H
Vital Signs:
Vital Signs
Temp Pulse Resp BP Pulse Ox
97.5 F 70 16 128/59 100
02/05/24 07:10 02/05/24 08:56 02/05/24 07:10 02/05/24 08:56 02/05/24 07:10
I&O
02/04/24 02/05/24 02/06/24
06:59 06:59 06:59
Intake Total 960 / 960 1520 / 1520
Output Total 1565 / 1565
Balance 960 / 960 -45 / -45
Review of Systems
-
History Source: Patient
All other systems: Not reviewed unless documented
Physical Exam
-
General: Well Developed, Well Nourished and No Apparent Distress
HEENT: Normocephalic, Atraumatic and Moist Mucous Membranes
Respiratory: Clear to Auscultation
Cardiac: Regular Rhythm and S1/S2
GI: Soft, Nontender and Nondistended
Musculoskeletal: No Clubbing and No Cyanosis
Neuro: Awake, Alert and Oriented
Psych: Calm
Data Reviewed
-
Diagnostic Radiology: Image personally visualized and interpreted and Report Reviewed by me
Ultrasound: Report Reviewed by me
Labs: Labs Reviewed by me
--- NOTE | 2024-02-05 12:42 | W.DS.TRANS ---
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
-
Discharge Instructions:
Discharge Diagnosis/Procedures #Respiratory Distress
#Acute HFpEF
#Valvular Abnormalities
#CKD IV
Chronic Anemia
Diet Low Cholesterol,Low Fat,Diabetic, Carb
Controlled
Activity As tolerated
Blood Work cbc, cmp
Instructions: *CBC Heart Failure Instructions
Stand-Alone Forms:
Changes to Home Medications: Yes
Discharge Medications:
DC Medications w/original date entered in [employer]
metoprolol succinate 50 mg tablet,extended release 24 hr 50 mg PO DAILY@1400 Blood Pressure 04/15/23
aspirin 81 mg tablet,delayed release (Enteric Coated Aspirin) 81 mg PO DAILY #30 tabs 11/07/23
metformin 500 mg tablet 500 mg PO BID AT 0800,1700 #1 tab 11/08/23
furosemide 20 mg tablet 60 mg (3 x 20 mg) PO DAILY 30 days #90 tabs 02/05/24
insulin glargine 100 unit/mL (3 mL) subcutaneous pen, sensor (Basaglar Tempo Pen (U-100) Insulin) 8 unit (0.08 mL) SC DAILY Diabetes #15 mL 02/05/24
sodium bicarbonate 650 mg tablet 650 mg PO TID 30 days #90 tabs 02/05/24
Home Medication Changes
furosemide 20 mg tablet 60 mg (3 x 20 mg) PO DAILY 30 days #90 tabs 02/05/24
insulin glargine 100 unit/mL (3 mL) subcutaneous pen, sensor (Basaglar Tempo Pen (U-100) Insulin) 8 unit (0.08 mL) SC DAILY Diabetes #15 mL 02/05/24
sodium bicarbonate 650 mg tablet 650 mg PO TID 30 days #90 tabs 02/05/24
Pending Results: No
--- NOTE | 2024-02-05 13:27 | CM ---
CM met with Anabelle who is agreeable to [facility] services at discharge. Referred to Sarah Clifford who will discuss with patient.
Plan: Discharge to home with [facility] per pt's request of agency.
PCP - Mini Wilde
[facility]
[2024-02-05 14:01] VITALS: BP 146/70
--- NOTE | 2024-02-05 14:03 | PTCARENOTE ---
As per hospitalist - cancel 24 hour urine and discharge patient as ordered.
[2024-02-05] MEDS: TOPROL XL PO (14:56)
--- NOTE | 2024-02-05 15:25 | PN.CDI ---
CDI
- -
CDI:
Physician Documentation Request
Admit Date: 02/01/24 18:00
Dear Doctor Giuliano,
Patient admitted for acute heart failure.
02/03 Hospitalist PN: 'CKD IV #metabolic acidosis, compensated'
Laboratory Tests
02/02/24 02/04/24
05:30 06:55
Creatinine 1.1 H 1.4 H
Clarify which of the following accurately represents the patient's renal status:
JEANIE on CKD 4
Rise in creatinine
Other
Criteria for JEANIE*
1 Increase in serum creatinine by > or = to 0.3 mg/dL (> or = to 26.5 micromol/L) within 48 hours, OR
2 Increase in serum creatinine to > or = to 1.5 times baseline, which is known or presumed to have occurred within 7 days, OR
3 Urine volume < 0.5 nL/kg/hour for six hours
Use of terms such as suspected, likely, concern for, or probable (associated with a specific diagnosis that is being evaluated, monitored, or treated as if it exists) are acceptable and can be coded in the inpatient setting, when documented at the
time of discharge.
Thank you,
Cristy Archer RN, BSN
CDI Specialist
Available via [place] text
Please use your independent medical judgment in providing your response.
*Source: Kidney Disease: Improving Global Outcomes (KDIGO) 2012
--- NOTE | 2024-02-05 15:31 | PN.CDI ---
CDI
- -
CDI:
Physician Documentation Request
Admit Date: 02/01/24 18:00
Dear Doctor Giuliano,
Patient admitted for acute heart failure.
01/31-02/04 Nursing Documentation: 'Stage 1 pressure ulcer sacrum'
Physician documentation of the type and location of wounds is required for compliant documentation. Based on the above clinical findings and your assessment, please provide the following in your progress note:
1. Location of the ulcer/wound, including laterality.
2. Type (etiology) of ulcer/wound:
- Diabetic ulcer
- Arterial (ischemic) ulcer
- Traumatic wound
- Venous stasis ulcer
- Pressure (decubitus) ulcer
- Non-healing surgical wound
- Other
- Unable to determine
3. For a non-pressure ulcer, please indicate the depth/severity:
- Limited to the breakdown of skin
- With fat layer exposed
- With necrosis of muscle
- With necrosis of bone
- Other
- Unable to determine
4. If a pressure ulcer, please also include the stage* of the ulcer:
- Stage 1 - Skin intact, non-blanchable redness
- Stage 2 - Partial thickness loss of dermis, includes intact or open blister
- Stage 3 - Full thickness tissue not including bone, tendon or muscle
- Stage 4 - Full thickness tissue loss, including exposed bone, tendon or muscle
- Unstageable - Full thickness loss in which the base of the ulcer is covered by slough (yellow, guerrero, garces, green or brown) and/or eschar (guerrero, brown or black) in the wound bed.
- Unable to determine
Use of terms such as suspected, likely, concern for, or probable (associated with a specific diagnosis that is being evaluated, monitored, or treated as if it exists) are acceptable and can be coded in the inpatient setting, when documented at the
time of discharge.
Thank you,
Cristy Archer RN, BSN
CDI Specialist
Available via [place] text
Please use your independent medical judgment in providing your response.
*Source: National Pressure Ulcer Advisory Panel (NPUAP)
--- NOTE | 2024-02-06 09:39 | W.HF.CON ---
Heart Failure
- LV Function
Left ventricular function study result: LV Ejection fraction >40%
Ejection Fraction Percentage: 55-60
- ARNI
Patient already on ARNI: No
Heart Failure ARNI Not Indicated: LV Ejection Fraction >/= 40%
- ACEI/ARB
Patient already on ACEI/ARB: No
Heart Failure ACEI/ARB Not Indicated: LV Ejection Fraction > 40%
- Beta Toño
Patient already on Evidence Based Beta Toño: Yes
- Mineralocorticord Receptor Antagonist
Patient already on MRA: No
Heart Failure MRA Not Indicated: LV Ejection Fraction > 40%
- SGLT-2 Inhibitor
Patient already on SGLT-2 Inhibitor: No
Heart Failure SGLT-2 Inhibitor Not Indicated: LV Ejection Fraction >40%
- NYHA CHF Classification
NYHA CHF Classification Level: Class III - Symptoms w/ min exertion, interferes w/ nml daily activity (mod MS/MR)
- ACC/AHA Stage
ACC/AHA Stage: Stage C: Symptomatic Heart Failure
[2024-02-06 22:45] LABS: Erythropoietin (EPO) 12 mU/mL (4-27)
[2024-02-09 01:35] LABS: Albumin 3.48 g/dL (3.75-5.01); Alpha 2 Globulin 0.94 g/dL (0.48-1.05); SPEP IFE Reflex Not Done; Total Protein-Electrophoresis 6.7 g/dL (6.3-8.2)
== END 2024-02-05 14:34 | disposition home health service (06) | DRG 291 ==
LOC: 4 EAST ACU 18:00
PROVIDERS: Internal Medicine Cardiovascular Disease; Nurse Practitioner Family; Nurse Practitioner Gerontology; ADMITTING PHYSICIAN Internal Medicine; ATTENDING PHYSICIAN Internal Medicine; CONSULT PHYSICIAN Internal Medicine; CONSULT PHYSICIAN Internal Medicine Gastroenterology; EMERGENCY PHYSICIAN Emergency Medicine; FAMILY PHYSICIAN Family Medicine
DX: I13.0 Hypertensive heart and chronic kidney disease with heart failure and stage 1 through stage 4 chronic kidney disease, or unspecified chronic kidney disease (principal); I50.31 Acute diastolic (congestive) heart failure; E87.20 Acidosis, unspecified; N18.4 Chronic kidney disease, stage 4 (severe); E11.22 Type 2 diabetes mellitus with diabetic chronic kidney disease; D63.8 Anemia in other chronic diseases classified elsewhere; L89.151 Pressure ulcer of sacral region, stage 1; Z79.82 Long term (current) use of aspirin; Z79.4 Long term (current) use of insulin; Z85.41 Personal history of malignant neoplasm of cervix uteri
CPT/HCPCS: 71046; 80048; 80053; 82607; 82668; 82728; 82746; 82805; 82962; 83540; 83550; 83605; 83735; 83880; 84155; 84165; 84484; 85014; 85018; 85025; 85027; 85045; 86850; 86900; 86901; 86920; 93005; 93306; 93970; 96374; 99285

== ENCOUNTER → 2024-03-26 09:22 | Outpatient (REF) | payer MEDICARE, OTHER, SELFPAY ==
[2024-03-26 10:03] LABS: Hematocrit 29.2 % (37.0-47.0); Hemoglobin 9.7 g/dL (12.0-16.0)
[2024-03-26 10:30] LABS: Protein/creatinine Ratio 0.3; Urine Protein 15 mg/dl
[2024-03-26 10:34] LABS: Microalbumin, Random Urine 5.1 mg/dl (0.6-1.7); Microalbumin/creatinine Ratio 97.1 mg/g
[2024-03-26 10:47] LABS: NT-proBNP 5280 pg/ml
[2024-03-26 10:53] LABS: Albumin 4.3 g/dl (3.5-5.0); Blood Urea Nitrogen 46 mg/dl (7-17); Calcium 8.7 mg/dl (8.4-10.2); Carbon Dioxide 18 mmol/L (22-30); Chloride 108 mmol/L (98-107); Glucose 53 mg/dl (70-99); Phosphorus 6.3 mg/dl (2.5-4.5); Potassium 4.3 mmol/L (3.5-5.1); Sodium 144 mmol/L (135-145); eGFR 35.01
== END ==
LOC: REG 09:22
PROVIDERS: ATTENDING PHYSICIAN Specialist; FAMILY PHYSICIAN Family Medicine
DX: N18.32 Chronic kidney disease, stage 3b (principal); I10 Essential (primary) hypertension
CPT/HCPCS: 36415; 80069; 82043; 82570; 83880; 84156; 85014; 85018

== ENCOUNTER → 2024-04-15 09:50 | Outpatient (REF) | payer MEDICARE, OTHER, SELFPAY ==
[2024-04-15 12:12] LABS: NT-proBNP 4480 pg/ml
[2024-04-15 13:00] LABS: Blood Urea Nitrogen 31 mg/dl (7-17); Calcium 8.6 mg/dl (8.4-10.2); Carbon Dioxide 22 mmol/L (22-30); Chloride 108 mmol/L (98-107); Glucose 50 mg/dl (70-99); HDL Cholesterol 55 mg/dl; Iron 80 ug/dl (37-170); LDL Cholesterol, Calculated 22 mg/dl; Potassium 3.9 mmol/L (3.5-5.1); Sodium 142 mmol/L (135-145); Total Cholesterol 94 mg/dl (50-199); Triglyceride 85 mg/dl (10-149); Very Low Density Lipoprotein 17 mg/dl (0-30); eGFR 41.57
[2024-04-15 13:43] LABS: Glycohemoglobin (HgbA1c) 7.7 % (4.0-5.6)
== END ==
LOC: REG 09:50
PROVIDERS: ATTENDING PHYSICIAN Specialist; FAMILY PHYSICIAN Family Medicine
DX: I10 Essential (primary) hypertension (principal); E78.00 Pure hypercholesterolemia, unspecified; E87.5 Hyperkalemia; E11.21 Type 2 diabetes mellitus with diabetic nephropathy; E61.1 Iron deficiency; D50.9 Iron deficiency anemia, unspecified
CPT/HCPCS: 36415; 80048; 80061; 83036; 83540; 83880

== ENCOUNTER → 2024-07-29 16:52 | Outpatient (REF) | payer MEDICARE, OTHER, SELFPAY ==
[2024-07-31 16:20] LABS: HPV, High Risk Not Detected; HPV, High Risk Source Anal
== END ==
LOC: CLAB 16:52
PROVIDERS: ATTENDING PHYSICIAN Surgery
DX: Z85.41 Personal history of malignant neoplasm of cervix uteri (principal)
CPT/HCPCS: 87624; 88112

== ENCOUNTER 2024-08-27 10:31 | Outpatient (RCR) | payer MEDICARE, OTHER, SELFPAY ==
[2024-08-27 10:35] VITALS: BP 138/68
[2024-08-27 11:08] VITALS: BP 138/68
[2024-08-27 11:25] VITALS: BP 137/69
[2024-08-27 13:46] VITALS: BP 138/90
== END 2024-09-10 23:59 | disposition home or self-care (01) ==
LOC: OID 10:31
PROVIDERS: ATTENDING PHYSICIAN Family Medicine
DX: D64.9 Anemia, unspecified (principal); J98.9 Respiratory disorder, unspecified; D50.0 Iron deficiency anemia secondary to blood loss (chronic)
CPT/HCPCS: 36415; 36430; 86850; 86900; 86901; 86920; P9016

== ENCOUNTER 2024-08-31 07:54 | Emergency (ER) | payer MEDICARE, OTHER, SELFPAY ==
[2024-08-31] VITALS (8 sets, daily range): BP systolic 106–150; BP diastolic 47–102
[2024-08-31 08:02] LABS: Glucose - Point of Care 132 mg/dl (70-99)
--- NOTE | 2024-08-31 08:25 | ED.GENMED ---
History of Present Illness
General
Chief Complaint: Blood Sugar Problem
Source: patient
Exam Limitations: none
Time Seen by Provider: 08/31/24 08:24
Nursing documentation reviewed up to this point in time: agreed with
History of Present Illness
History of Present Illness:
78-year-old female with history of diabetic neuropathy, balance problems, HTN, GERD, IDDM, anxiety/depression, renal insufficiency Presents stating 'I was paralyzed, I could not talk,' she kept calling and screaming and 61 yo son finally came to her
room and called 911. She states sugar was 96 but EMS reports 41 glucose on arrival. She states they gave her glucose and she is feeling much improved. She denies headache, CP, SOB, denies UTI symptoms. Denies weakness in extremities.
Past History
Past History
ED Past Medical History: HTN, IDDM and Other (Hypoglycemia events)
ED Past Surgical History: Other
Social History
Tobacco: Non-smoker
Alcohol: None
Drug: None
Personal: Other
Living: alone
Employment: Not employed
Family History
Family History: Diabetes
Review of Systems
Review of Systems
Allergies reviewed?: Yes
All Other Systems: ROS reviewed and negative except as documented in HPI and ROS
Constitutional: Denies fever
Respiratory: Denies trouble breathing
Cardiac: Denies chest pain
ABD/GI: Reports bloody stools (She states the radiation 'destroyed my bowels and every time I eat it goes right through me.' Chronic intermittent rectal bleeding) and other (intermittent rectal bleeding since radiation for cervical CA, followed by
Dr. Correia. Had 1U PRBC 4 days ago. Last chemoradiation was 6 years ago, 2-1/2 years ago patient had pinpoint radiation and states her cancer is in remission. ); Denies abdominal pain, nausea, vomiting, diarrhea, constipated or anorexia
: Reports urgency; Denies dysuria, frequency, incontinence or difficulty voiding
Musculoskeletal: Reports edema (mild bilateral ankle edema)
Skin: Reports no symptoms
Neurological: Denies headache or weakness
Phy Exam
Physical Exam
Physical Exam:
GENERAL: No acute distress. A&Ox3.
CONSTITUTIONAL: Afebrile.
EYES: clear, conjunctivae normal
ENMT: moist mucus membranes, Pharynx nl
RESPIRATORY: Regular respirations, nonlabored, lungs clear.
CARDIOVASCULAR: Regular rate and rhythm, no murmurs, no rubs.
GI: Soft, nontender, normal BS
MUSCULOSKELETAL: Moves with ease. Well perfused.
SKIN: Warm, dry, pink
PSYCH: Normal mood and affect. Well kept, interactive and appropriate
NEUROLOGIC: Awake, alert and oriented. Cranial nerves II through XII intact. Strength equal throughout. No focal neurological deficits
Course
Orders/Labs/Results
Orders:
Orders
08/31/24 08:10
EKG [Electrocardiogram (*1)] Urgent
Reason for Study: Chest Pain
EKG- Treatment ONCE
08/31/24 09:25
Type+Screen Urgent
Complete Blood Count/With Diff Urgent
Comprehensive Metabolic Panel Urgent
Urinalysis Reflex To Culture Urgent
Date Specimen was Collected: 08/31/24
Time Specimen was Collected: 08:10
Urine Microscopic Reflex Cult Urgent
Abnormal Lab Results
08/31/24 08/31/24
08:01 09:25
RBC 3.62 L 10^6/uL
(4.20-5.40)
Hgb 10.6 L g/dL
(12.0-16.0)
Hct 32.8 L %
(37.0-47.0)
MCHC 32.3 L g/dL
(33.0-37.0)
RDW 16.2 H %
(11.5-14.5)
MPV 10.8 H fL
(7.4-10.4)
Absolute Lymphs (auto) 0.4 L 10^3/uL
(1.2-3.4)
Neutrophils % 87.2 H %
(42.2-75.2)
Lymphocytes % 6.8 L %
(20.5-51.1)
Chloride 110 H mmol/L
(98-107)
Carbon Dioxide 20 L mmol/L
(22-30)
BUN 35 H mg/dl
(7-17)
Creatinine 1.3 H mg/dL
(0.6-1.0)
Glucose 127 H mg/dl
(70-99)
Alkaline Phosphatase 192 H U/L
(38-126)
Urine Albumin (Reflex) 2+ A
(Neg - Trace)
POC Glucose 132 H mg/dl
(70-99)
08/31/24 09:25
08/31/24 09:25
Vital Signs
Initial and Last Documented VS:
Initial Vital Signs
Pulse Resp Pulse Ox
80 16 100
08/31/24 08:03 08/31/24 08:03 08/31/24 08:03
Last Documented Vital Signs
Pulse Resp BP Pulse Ox
75 13 128/47 100
08/31/24 12:00 08/31/24 12:00 08/31/24 12:00 08/31/24 11:15
MDM/Problems Addressed
Differential Diagnosis Includes:
hypoglycemia, CVA, TIA
MDM/Problems Addressed:
78-year-old female with history of diabetic neuropathy, balance problems, HTN, GERD, IDDM, anxiety/depression, renal insufficiency Presents stating 'I was paralyzed, I could not talk,' she kept calling and screaming and 61 yo son finally came to her
room and called 911. She states sugar was 96 but EMS reports 41 glucose on arrival. She states they gave her glucose and she is feeling much improved. She denies headache, CP, SOB, denies UTI symptoms. Denies weakness in extremities.
Bedside glucose 132
10:15 AM:
CBC unremarkable hemoglobin 10.6
CMP consistent with her CKD
Patient had some blood in her bowel movement earlier. She just had another soft bowel movement with no visible blood but does hematest positive. Patient has chronic intermittent rectal bleeding so this is nothing acute
Patient is totally neurologically intact, do not suspect CVA/TIA
11:00 a.m.
U/A unremarkable
Patient has been out of bed and ambulating with walker multiple times to the bathroom and back independently and steadily.
She is eating lunch and drinking well, is stable for discharge.
Patient had a cardiac appointment 3 days ago and was told everything was okay and she needed to follow-up in 1 year
No worrisome findings, stable for discharge
*Critical Care Note
Total Time (30-74mins, 75-104mins- exclusive of procedures): Not Applicable
ED Attending Note
-
Portions of this chart may have been created with voice recognition software.� Occasional wrong word or��sound alike� substitutions may have occurred due to the inherent limitations of voice recognition software.
Discharge Plan
Departure
Patient Disposition: Home (Routine Discharge)
Date of Disposition: 08/31/24
Time of Disposition: 11:13
Patient with high blood pressure during this ER visit?: No
Condition: Good
Discharge Problem:
Diabetes mellitus with hypoglycemia
Instructions: Low blood sugar in people with diabetes
Prescriptions:
No Action
metoprolol succinate 50 mg Tablet Extended Release 24 Hr
50 mg PO DAILY@1400
aspirin [Enteric Coated Aspirin] 81 mg tablet,delayed release (DR/EC)
81 mg PO DAILY Qty: 30 0RF
metformin 500 mg Tablet
500 mg PO BID AT 0800,1700 Qty: 1 0RF
sodium bicarbonate 650 mg Tablet
650 mg PO TID 30 Days Qty: 90 0RF
metolazone 2.5 mg Tablet
2.5 mg PO .
furosemide 20 mg tablet
40 mg PO DAILY
Basaglar Tempo Pen(U-100)Insln 100 unit/mL (3 mL) insulin pen, sensor
14 unit SC DAILY
Referrals:
Mini Wilde MD [Family Provider] - Call in 1-3 days for appt
Activity Restrictions/Additional Instructions:
As we discussed, your blood sugar was 127 before eating.
Check your sugars before bed and as you usually do.
Call your doctor Sunday and make a follow up appointment
Get a new glucose monitor machine as yours may not be accurate
Discharge Date and Time
Print Language: ETHIOPIAN
[2024-08-31 10:03] LABS: Hematocrit 32.8 % (37.0-47.0); Hemoglobin 10.6 g/dL (12.0-16.0); Mean Corp Hgb Conc. 32.3 g/dL (33.0-37.0); Mean Corpuscular Hgb 29.3 pg (27.0-31.0); Mean Corpuscular Volume 90.6 fL (81.0-99.0); Mean Platelet Volume 10.8 fL (7.4-10.4); Platelet Count 261 10^3/uL (130-400); Red Blood Cell Count 3.62 10^6/uL (4.20-5.40); Red Cell Dist. Width 16.2 % (11.5-14.5); White Blood Cell Count 6.2 10^3/uL (4.8-10.8)
[2024-08-31 10:07] LABS: % Basophils 0.8 % (0-2); % Eosinophils 0.2 % (0-6); % Immature Granulocytes 0.3 % (0-0.5); % Lymphocytes 6.8 % (20.5-51.1); % Monocytes 4.7 % (1.7-9.3); % Neutrophils 87.2 % (42.2-75.2); Absolute Basophils 0.1 10^3/uL (0-0.2); Absolute Lymphocytes 0.4 10^3/uL (1.2-3.4); Absolute Monocytes 0.3 10^3/uL (0.1-0.6); Absolute Neutrophils 5.4 10^3/uL (1.4-6.5)
[2024-08-31 10:15] LABS: Urine Albumin 2+ (Neg - Trace); Urine Bilirubin Negative (Negative); Urine Character Clear (Clear); Urine Color Yellow; Urine Glucose Negative (Negative); Urine Ketone Negative (Negative); Urine Leukocyte Negative (Negative); Urine Nitrite Negative (Negative); Urine Occult Blood Negative (Negative); Urine Urobilinogen Negative (Neg - 1+)
[2024-08-31 10:18] LABS: ALT (SGPT) 21 U/L (0-35); AST (SGOT) 23 U/L (14-36); Albumin 4.2 g/dl (3.5-5.0); Alkaline Phosphatase 192 U/L (38-126); Blood Urea Nitrogen 35 mg/dl (7-17); Calcium 9.1 mg/dl (8.4-10.2); Carbon Dioxide 20 mmol/L (22-30); Chloride 110 mmol/L (98-107); Estimated Creatinine Clearance 26 ml/min; Glucose 127 mg/dl (70-99); Sodium 144 mmol/L (135-145); Total Bilirubin 0.4 mg/dl (0.2-1.3); Total Protein 6.7 g/dl (6.3-8.2); eGFR 41.57
[2024-08-31 10:44] LABS: Urine Red Blood Cell 0-2 /HPF (0-2); Urine White Cell 0-2 /HPF (0-5)
== END 2024-08-31 13:30 | disposition home or self-care (01) ==
LOC: EMR 07:54
PROVIDERS: EMERGENCY PHYSICIAN Emergency Medicine; FAMILY PHYSICIAN Family Medicine
DX: E11.649 Type 2 diabetes mellitus with hypoglycemia without coma (principal); E11.40 Type 2 diabetes mellitus with diabetic neuropathy, unspecified; I10 Essential (primary) hypertension; N28.9 Disorder of kidney and ureter, unspecified; Z79.4 Long term (current) use of insulin
CPT/HCPCS: 99284; 80053; 81003; 81015; 82962; 85025; 86850; 86900; 86901; 93005

== ENCOUNTER → 2024-11-07 08:25 | Outpatient (REF) | payer MEDICARE, OTHER, SELFPAY ==
[2024-11-07 09:18] LABS: % Basophils 0.8 % (0-2); % Eosinophils 1.7 % (0-6); % Immature Granulocytes 0.7 % (0-0.5); % Monocytes 5.9 % (1.7-9.3); % Neutrophils 78.9 % (42.2-75.2); Absolute Basophils 0.1 10^3/uL (0-0.2); Absolute Eosinophils 0.1 10^3/uL (0-0.7); Absolute Lymphocytes 0.7 10^3/uL (1.2-3.4); Absolute Monocytes 0.4 10^3/uL (0.1-0.6); Absolute Neutrophils 4.7 10^3/uL (1.4-6.5); Hematocrit 28.9 % (37.0-47.0); Hemoglobin 9.5 g/dL (12.0-16.0); Mean Corp Hgb Conc. 32.9 g/dL (33.0-37.0); Mean Corpuscular Hgb 29.7 pg (27.0-31.0); Mean Corpuscular Volume 90.3 fL (81.0-99.0); Mean Platelet Volume 10.5 fL (7.4-10.4); Nucleated Red Blood Cells % 0 %; Platelet Count 338 10^3/uL (130-400); Red Cell Dist. Width 14.5 % (11.5-14.5); White Blood Cell Count 5.9 10^3/uL (4.8-10.8)
[2024-11-07 09:52] LABS: ALT (SGPT) 25 U/L (0-35); AST (SGOT) 25 U/L (14-36); Albumin 4.4 g/dl (3.5-5.0); Alkaline Phosphatase 216 U/L (38-126); Blood Urea Nitrogen 38 mg/dl (7-17); Calcium 9.3 mg/dl (8.4-10.2); Carbon Dioxide 22 mmol/L (22-30); Chloride 109 mmol/L (98-107); Direct Bilirubin 0.3 mg/dl (0.0-0.4); Glucose 75 mg/dl (70-99); Potassium 4.7 mmol/L (3.5-5.1); Sodium 142 mmol/L (135-145); Total Bilirubin 0.4 mg/dl (0.2-1.3); Total Protein 7.4 g/dl (6.3-8.2); eGFR 35.01
[2024-11-07 09:53] LABS: Microalbumin, Random Urine 5.8 mg/dl (0.6-1.7)
[2024-11-07 09:56] LABS: Microalbumin/creatinine Ratio 120.8 mg/g; Protein/creatinine Ratio 0.3; Urine Protein 16 mg/dl
[2024-11-07 10:21] LABS: Glycohemoglobin (HgbA1c) 8.9 % (4.0-5.6)
[2024-11-08 10:30] LABS: Intact PTH 612.5 pg/ml (13.6-85.8)
== END ==
LOC: REG 08:25
PROVIDERS: ATTENDING PHYSICIAN Specialist; FAMILY PHYSICIAN Family Medicine
DX: D50.0 Iron deficiency anemia secondary to blood loss (chronic) (principal); D63.8 Anemia in other chronic diseases classified elsewhere; E87.5 Hyperkalemia; I10 Essential (primary) hypertension; E11.42 Type 2 diabetes mellitus with diabetic polyneuropathy; E11.21 Type 2 diabetes mellitus with diabetic nephropathy; N18.32 Chronic kidney disease, stage 3b; N25.81 Secondary hyperparathyroidism of renal origin; I12.9 Hypertensive chronic kidney disease with stage 1 through stage 4 chronic kidney disease, or unspecified chronic kidney disease
CPT/HCPCS: 36415; 80053; 82043; 82248; 82570; 83036; 83970; 84156; 85025

== ENCOUNTER → 2025-01-29 08:51 | Outpatient (REF) | payer MEDICARE, OTHER, SELFPAY ==
[2025-01-29 10:17] LABS: Hematocrit 24.8 % (37.0-47.0); Hemoglobin 7.8 g/dL (12.0-16.0); Mean Corp Hgb Conc. 31.5 g/dL (33.0-37.0); Mean Corpuscular Volume 93.2 fL (81.0-99.0); Nucleated Red Blood Cells % 0 %; Platelet Count 285 10^3/uL (130-400); Red Cell Dist. Width 13.9 % (11.5-14.5)
[2025-01-29 11:27] LABS: Albumin 4.0 g/dl (3.5-5.0); Blood Urea Nitrogen 35 mg/dl (7-17); Calcium 8.7 mg/dl (8.4-10.2); Carbon Dioxide 19 mmol/L (22-30); Chloride 110 mmol/L (98-107); Glucose 130 mg/dl (70-99); Iron 40 ug/dl (37-170); Potassium 5.0 mmol/L (3.5-5.1); Sodium 139 mmol/L (135-145); eGFR 27.96
[2025-01-29 11:28] LABS: Vitamin D, 25-OH*** < 12.8 ng/mL (30-80)
[2025-01-29 11:36] LABS: Total Iron Binding Capacity 394 ug/dl (265-497)
== END ==
LOC: REG 08:51
PROVIDERS: ATTENDING PHYSICIAN Specialist; FAMILY PHYSICIAN Family Medicine
DX: E61.1 Iron deficiency (principal); N18.32 Chronic kidney disease, stage 3b; E55.9 Vitamin D deficiency, unspecified
CPT/HCPCS: 36415; 80069; 82306; 83540; 83550; 83970; 85025

== ENCOUNTER 2025-02-06 08:30 | Outpatient (RCR) | payer MEDICARE, OTHER, SELFPAY ==
[2025-02-06 09:29] VITALS: BP 135/69
[2025-02-06 09:48] VITALS: BP 130/56
[2025-02-06 11:53] VITALS: BP 130/67
[2025-02-06] MEDS: LASIX 40 MG IV (11:59)
[2025-02-06 12:08] VITALS: BP 130/67
[2025-02-06 12:31] VITALS: BP 143/71
[2025-02-06 14:51] VITALS: BP 156/74
== END 2025-02-10 23:59 | disposition home or self-care (01) ==
LOC: OID 08:30
PROVIDERS: ATTENDING PHYSICIAN Family Medicine
DX: D50.0 Iron deficiency anemia secondary to blood loss (chronic) (principal); N18.32 Chronic kidney disease, stage 3b; E11.21 Type 2 diabetes mellitus with diabetic nephropathy; D63.1 Anemia in chronic kidney disease; I12.9 Hypertensive chronic kidney disease with stage 1 through stage 4 chronic kidney disease, or unspecified chronic kidney disease; I34.0 Nonrheumatic mitral (valve) insufficiency; Z85.41 Personal history of malignant neoplasm of cervix uteri
CPT/HCPCS: 36415; 36430; 86850; 86900; 86901; 86920; 96374; P9016

== ENCOUNTER → 2025-02-19 08:40 | Outpatient (REF) | payer MEDICARE, OTHER, SELFPAY ==
[2025-02-19 10:33] LABS: Hematocrit 36.4 % (37.0-47.0); Hemoglobin 11.9 g/dL (12.0-16.0); Mean Corp Hgb Conc. 32.7 g/dL (33.0-37.0); Mean Corpuscular Volume 93.3 fL (81.0-99.0); Nucleated Red Blood Cells % 0 %; Platelet Count 257 10^3/uL (130-400); Red Cell Dist. Width 13.8 % (11.5-14.5)
[2025-02-19 11:15] LABS: ALT (SGPT) 59 U/L (0-35); AST (SGOT) 44 U/L (14-36); Albumin 4.3 g/dl (3.5-5.0); Alkaline Phosphatase 177 U/L (38-126); Blood Urea Nitrogen 31 mg/dl (7-17); Calcium 9.5 mg/dl (8.4-10.2); Carbon Dioxide 20 mmol/L (22-30); Chloride 112 mmol/L (98-107); Glucose 102 mg/dl (70-99); Potassium 5.9 mmol/L (3.5-5.1); Sodium 139 mmol/L (135-145); Total Protein 7.3 g/dl (6.3-8.2); eGFR 37.80
== END ==
LOC: REG 08:40
PROVIDERS: ATTENDING PHYSICIAN Specialist; FAMILY PHYSICIAN Family Medicine
DX: N18.32 Chronic kidney disease, stage 3b (principal)
CPT/HCPCS: 36415; 80053; 85025